=== PATIENT | female | born 1955 | race African-American/Black ===

== ENCOUNTER 2017-04-21 12:46 | Observation (INO) | payer MEDICAID, OTHER ==
[2017-04-21] VITALS (8 sets, daily range): BP systolic 112–141; BP diastolic 68–80; PULSE 77–88; RESP 16–22; TEMP 97.4–98.5; O2SAT 97–100
[~2017-04-21] VITALS: Ht 170.2 cm; Wt 60.0 kg
[~2017-04-21 12:46] MED LIST: DOXY100T PO; Z.0.NO CURRENT MEDS
--- NOTE | 2017-04-21 15:05 | PD ---
HPI Chief Complaint: Abdominal Pain Time Seen by Provider: 15:05 Travel History International Travel<30 days: No Contact w/Intl Traveler<30days: No Traveled to known affect area: No History of Present Illness HPI 61-year-old Afro-Dominican female presents the emergency department reportedly at the request of Dr. Caldera the coffee machine technician for recent diagnosis of stomach/esophageal cancer. Patient states she recently had an endoscopy for ongoing chest discomfort and abdominal pain. She states she was called by Dr. Caldera's office to come in the hospital for further evaluation and treatment for new diagnosis of MALT lymphoma. Patient currently has minimal pain but has a sickly's stomach feeling at this time. No vomiting currently. She has no diarrhea, no constipation. She is allergic to aspirin, penicillin, and Voltaren. PFSH Past Medical History Arthritis: Yes Asthma: No Autoimmune Disease: No Blood Disorders: No Anxiety: No Depression: No Heart Rhythm Problems: No Cancer: No Cardiovascular Problems: Yes High Cholesterol: No Chemotherapy: No Chest Pain: Yes Congestive Heart Failure: No COPD: No Cerebrovascular Accident: No Diabetes: No Diminished Hearing: No Endocrine: No Gastrointestinal Disorders: No GERD: No Glaucoma: No Genitourinary: No Headaches: No Hepatitis: No Hiatal Hernia: No Hypertension: No Immune Disorder: No Kidney Stones: No Musculoskeletal: Yes Neurologic: No Psychiatric: No Respiratory: No Myocardial Infarction: No Radiation Therapy: No Renal Failure: No Seizures: No Sickle Cell Disease: No Sleep Apnea: No Thyroid Disease: No Ulcer: No Menopausal: Yes Past Surgical History Abdominal Surgery: No AICD: No Cardiac Surgery: No Ear Surgery: No Endocrine Surgery: No Eye Surgery: No Genitourinary Surgery: No Gynecologic Surgery: Yes (LEFT OOPHRECTOMY) Hysterectomy: Yes (STATES ONE OVARY REMOVED ONLY) Joint Replacement: No Neurologic Surgery: No Oral Surgery: No Pacemaker: No Thoracic Surgery: No Other Surgery: Yes Social History Alcohol Use: No Tobacco Use: No Substance Use: No Allergies-Medications (Allergen,Severity, Reaction): Coded Allergies: Aspirin (Verified Allergy, Severe, NAUSEA, 04/21/17) Voltaren (Verified Allergy, Severe, VOMITING, 04/21/17) Penicillin (Verified Adverse Reaction, Severe, VOMITING, 04/21/17) Reported Meds & Prescriptions Reported Meds & Active Scripts Active Reported Levothyroxine (Levothyroxine Sodium) 25 Mcg Tab 25 Mcg PO DAILY Review of Systems General / Constitutional: No: Fever Eyes: No: Visual changes HENT: No: Headaches Cardiovascular: No: Chest Pain or Discomfort Respiratory: No: Shortness of Breath Gastrointestinal: Positive: Nausea, No: Vomiting, Diarrhea, Abdominal Pain Genitourinary: No: Dysuria Musculoskeletal: No: Pain Skin: No Rash Neurologic: No: Weakness Psychiatric: No: Depression Endocrine: No: Polydipsia Hematologic/Lymphatic: No: Easy Bruising Physical Exam Narrative GENERAL: Patient appears in no acute distress. SKIN: Warm and dry. Normal color. Normal turgor. HEAD: Atraumatic. Normocephalic. EYES: Pupils equal and round. No scleral icterus. No injection or drainage. ENT: No nasal bleeding or discharge. Mucous membranes pink and moist. Pharynx is clear. Airway is patent. NECK: Trachea midline. No JVD. CARDIOVASCULAR: Regular rate and rhythm. RESPIRATORY: No accessory muscle use. Clear to auscultation. Breath sounds equal bilaterally. GASTROINTESTINAL: Abdomen soft, non-tender, nondistended. Hepatic and splenic margins not palpable. MUSCULOSKELETAL: Extremities without clubbing, cyanosis, or edema. No obvious deformities. NEUROLOGICAL: Awake and alert. No obvious cranial nerve deficits. Motor grossly within normal limits. Five out of 5 muscle strength in the arms and legs. Normal speech. PSYCHIATRIC: Appropriate mood and affect; insight and judgment normal. Data Data Last Documented VS Vital Signs Date Time Temp Pulse Resp B/P Pulse Ox O2 Delivery O2 Flow Rate FiO2 04/21/17 15:54 81 17 123/75 99 Room Air 04/21/17 12:48 98.5 Orders Complete Blood Count With Diff (04/21/17 15:25) Comprehensive Metabolic Panel (04/21/17 15:25) Lipase (04/21/17 15:25) Prothrombin Time / Inr (Pt) (04/21/17 15:25) Act Partial Throm Time (Ptt) (04/21/17 15:25) Urinalysis - C+S If Indicated (04/21/17 15:25) Iv Access Insert/Monitor (04/21/17 15:25) Ecg Monitoring (04/21/17 15:25) Oximetry (04/21/17 15:25) Ondansetron Inj (Zofran Inj) (04/21/17 15:30) Sodium Chloride 0.9% Flush (Ns Flush) (04/21/17 15:30) Electrocardiogram (04/21/17 15:25) Chest, Single Ap (04/21/17 15:25) Labs Laboratory Tests Test 04/21/17 15:40 White Blood Count 6.1 TH/MM3 Red Blood Count 4.18 MIL/MM3 Hemoglobin 12.2 GM/DL Hematocrit 36.3 % Mean Corpuscular Volume 86.9 FL Mean Corpuscular Hemoglobin 29.1 PG Mean Corpuscular Hemoglobin 33.6 % Concent Red Cell Distribution Width 12.9 % Platelet Count 248 TH/MM3 Mean Platelet Volume 8.2 FL Neutrophils (%) (Auto) 48.9 % Lymphocytes (%) (Auto) 37.4 % Monocytes (%) (Auto) 7.0 % Eosinophils (%) (Auto) 5.8 % Basophils (%) (Auto) 0.9 % Neutrophils # (Auto) 3.0 TH/MM3 Lymphocytes # (Auto) 2.3 TH/MM3 Monocytes # (Auto) 0.4 TH/MM3 Eosinophils # (Auto) 0.3 TH/MM3 Basophils # (Auto) 0.1 TH/MM3 CBC Comment DIFF FINAL Differential Comment Prothrombin Time 10.1 SEC Prothromb Time International 0.9 RATIO Ratio Activated Partial 30.2 SEC Thromboplast Time Urine Color YELLOW Urine Turbidity CLEAR Urine pH 5.5 Urine Specific [place] 1.015 Urine Protein NEG mg/dL Urine Glucose (UA) NEG mg/dL Urine Ketones NEG mg/dL Urine Occult Blood NEG Urine Nitrite NEG Urine Bilirubin NEG Urine Urobilinogen LESS THAN 2.0 MG/DL Urine Leukocyte Esterase NEG Urine WBC 1 /hpf Urine Mucus FEW /lpf Microscopic Urinalysis Comment CULT NOT INDICATED Sodium Level 141 MEQ/L Potassium Level 3.8 MEQ/L Chloride Level 108 MEQ/L Carbon Dioxide Level 25.7 MEQ/L Anion Gap 7 MEQ/L Blood Urea Nitrogen 15 MG/DL Creatinine 0.74 MG/DL Estimat Glomerular Filtration 97 ML/MIN Rate Random Glucose 95 MG/DL Calcium Level 9.2 MG/DL Total Bilirubin 0.4 MG/DL Aspartate Amino Transf 16 U/L (AST/SGOT) Alanine Aminotransferase 22 U/L (ALT/SGPT) Alkaline Phosphatase 102 U/L Total Protein 7.2 GM/DL Albumin 3.4 GM/DL Lipase 170 U/L [facility] Medical Decision Making Medical Screen Exam Complete: Yes Emergency Medical Condition: Yes Medical Record Reviewed: Yes Differential Diagnosis Recent diagnosis of abdominal cancer. H. pylori. Abdominal pain. Narrative Course Call was placed to Dr. Caldera, regarding the patient. IV access is obtained and the patient is given 4 mg Zofran IV. EKG, chest x-ray, and labs ordered including CBC, CMP, urinalysis, and lipase. Chest x-ray is negative for acute process. EKG shows normal sinus rhythm without significant findings. CBC is unremarkable. Urinalysis is unremarkable. CMP shows no significant findings. Records are requested from the [facility]. Patient will be admitted to the hospitalist with oncology consult. Diagnosis Primary Impression: MALT lymphoma Admitting Information Admitting Physician Requests: Observation Condition: Stable Shaheed Cates Apr 21, 2017 15:05
[2017-04-21] MEDS ORDERED: SODIUM CHLORIDE 0.9% FLUSH 10 ML FLUSH IV FLUSH PRN ×2 (15:30→17:45)
[2017-04-21] MEDS ORDERED: ONDANSETRON HCL 4 MG/2 ML VIAL IVP ONE (15:30)
[2017-04-21] MEDS ORDERED: LEVO25TA4 PO (16:02)
[2017-04-21 16:13] LABS: BASOPHIL # 0.1 TH/MM3 (0-0.2); BASOPHIL % 0.9 % (0.0-2.0); EOSINOPHIL # 0.3 TH/MM3 (0-0.4); EOSINOPHIL % 5.8 % (0.0-4.0); HEMATOCRIT 36.3 % (35.0-46.0); HEMO FLAGS DIFF FINAL; LYMPH % 37.4 % (9.0-44.0); LYMPHOCYTE # 2.3 TH/MM3 (1.0-4.8); MEAN CELL VOLUME 86.9 FL (80.0-100.0); MEAN CORPUSCULAR HEMOGLOBIN 29.1 PG (27.0-34.0); MEAN CORPUSCULAR HGB CONC 33.6 % (32.0-36.0); NEUT % 48.9 % (16.0-70.0); PLATELET COUNT 248 TH/MM3 (150-450); RED BLOOD COUNT 4.18 MIL/MM3 (4.00-5.30); RED CELL DISTRIBUTION WIDTH 12.9 % (11.6-17.2); WHITE BLOOD COUNT 6.1 TH/MM3 (4.0-11.0)
[2017-04-21 16:23] LABS: BLOOD, URINE NEG (NEG); COMMENT (UR) CULT NOT INDICATED; CULTURE IF INDICATED CULT NOT INDICATED; GLUCOSE,URINE NEG (NEG); KETONE, URINE NEG (NEG); MUCUS URINE FEW /lpf (OCC); NITRITE,URINE NEG (NEG); PH, URINE 5.5 (5.0-8.5); URINE COLOR YELLOW (YELLW/STRAW)
[2017-04-21 16:28] LABS: APTT (PATIENT) 30.2 SEC (24.3-30.1); INTERNATIONAL NORMALIZED RATIO 0.9 RATIO; PROTHROMBIN TIME - PATIENT 10.1 SEC (9.8-11.6)
--- NOTE | 2017-04-21 16:33 | RADRPT ---
EXAM DATE/TIME: 04/21/2017 15:58 [facility] COMPARISON: No previous studies available for comparison. INDICATIONS : Upper abdominal/chest pain. MEDICAL HISTORY : None. SURGICAL HISTORY : None. ENCOUNTER: Initial ACUITY: 2 weeks PAIN SCORE: 6/10 LOCATION: chest FINDINGS: The lungs are clear without infiltrate, nodule, or mass. There is no appreciable pleural effusion fo r technique. Heart and mediastinum are unremarkable. CONCLUSION: No acute cardiopulmonary disease. Adelina Flores MD on April 21, 2017 at 16:31 Board Certified Radiologist. This report was verified electronically.
[2017-04-21 16:41] LABS: ANION GAP 7 MEQ/L (5-15); AST (GOT) 16 U/L (15-37); BICARBONATE 25.7 MEQ/L (21.0-32.0); BLOOD UREA NITROGEN 15 MG/DL (7-18); CHLORIDE 108 MEQ/L (98-107); GLOMERULAR FILTRATION RATE 97 ML/MIN (>89); POTASSIUM 3.8 MEQ/L (3.5-5.1); SODIUM (NA) 141 MEQ/L (136-145)
[2017-04-21 16:44] LABS: ALKALINE PHOSPHATASE 102 U/L (45-117); ALT (GPT) 22 U/L (10-53); TOTAL BILIRUBIN ADULT 0.4 MG/DL (0.2-1.0)
--- NOTE | 2017-04-21 18:40 | HHI.HP ---
HPI Service [facility] Primary Care Physician No Primary Care Physician Admission Diagnosis MALT Lymphoma Diagnoses: Chief Complaint: Abdominal Pain Travel History International Travel<30 Days: No Contact w/Intl Traveler <30 Da: No Traveled to Known Affected Are: No History of Present Illness Written by Bruno Coulter, acting as scribe for Dr. Araujo on 04/21/17 at 18: 24. Patient is a 61-year-old AA female with primary medical history of hypothyroidism, rheumatoid arthritis who came into the hospital with complaints of abdominal pain. Patient stated that she was diagnosed yesterday with MALT lymphoma, stomach. She had an EGD with Botox and biopsy done by Dr. Caldera and was told to come to the hospital for further evaluation and treatment of MALT lymphoma. Two weeks ago she was at [facility] diagnosed with H. Pylori. Came in today for increasing abdominal pain, reports abdominal pain is intermittent and has increased in frequency and severity, radiating to the mid sternum area, relieved with pain medications. Patient reports constipation, nausea but no vomiting. She also reports night sweats. States that she has been feeling some stomach pain on and off and has been having stomach problems thinking it was only gas for the past several months. Currently she denies fevers, shortness of breath, chest pain, palpitations, dizziness, headache, diarrhea, dysuria. Review of Systems Except as stated in HPI: all other systems reviewed are Neg Past Family Social History Past Medical History Hypothyroidism Rheumatoid arthritis Past Surgical History Partial thyroidectomy Spinal tap Left oophorectomy Reported Medications Reported Meds & Active Scripts Active Reported Levothyroxine (Levothyroxine Sodium) 25 Mcg Tab 25 Mcg PO DAILY Allergies: Coded Allergies: Aspirin (Verified Allergy, Severe, NAUSEA, 04/21/17) Voltaren (Verified Allergy, Severe, VOMITING, 04/21/17) Penicillin (Verified Adverse Reaction, Severe, VOMITING, 04/21/17) Active Ordered Medications Current Medications Medications (Trade) Dose Ordered Sig/Renetta Route Start Time Stop Time Status Last Admin (NS Flush) 2 ml UNSCH PRN IV FLUSH 04/21/17 15:30 04/21/17 16:07 (NS Flush) 2 ml UNSCH PRN IV FLUSH 04/21/17 17:45 (NS Flush) 2 ml BID IV FLUSH 04/21/17 21:00 Family History Grandmother of colon cancer, one brother had leukemia, sister had from heart attack, another brother has stomach and colon problem is still alive Social History Rare alcohol use not in the last 3 months Former smoker, quit 10 years ago 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 SKIN: No rashes, ecchymoses or lesions. Warm and dry. HEAD: Normocephalic. No temporal or scalp tenderness. EYES: Pupils equal round and reactive. Extraocular motions intact. No scleral icterus. No injection or drainage. ENT: Nose without bleeding. Throat without erythema. Uvula midline. Dentures present. Airway patent. NECK: Trachea midline. No JVD or lymphadenopathy. Supple, nontender, no meningeal signs. CARDIOVASCULAR: Regular rate and rhythm without murmurs, gallops, or rubs. RESPIRATORY: Clear to auscultation. Breath sounds equal bilaterally. No wheezes , rales, or rhonchi. GASTROINTESTINAL: Abdomen soft, non-tender, slightly distended. BS Active x 4 MUSCULOSKELETAL: Extremities without clubbing, cyanosis, or edema. NEUROLOGICAL: Awake and alert. Cranial nerves II through XII intact. Motor and sensory grossly within normal limits. Normal speech. Laboratory Laboratory Tests Test 04/21/17 15:40 White Blood Count 6.1 Red Blood Count 4.18 Hemoglobin 12.2 Hematocrit 36.3 Mean Corpuscular Volume 86.9 Mean Corpuscular Hemoglobin 29.1 Mean Corpuscular Hemoglobin 33.6 Concent Red Cell Distribution Width 12.9 Platelet Count 248 Mean Platelet Volume 8.2 Neutrophils (%) (Auto) 48.9 Lymphocytes (%) (Auto) 37.4 Monocytes (%) (Auto) 7.0 Eosinophils (%) (Auto) 5.8 Basophils (%) (Auto) 0.9 Neutrophils # (Auto) 3.0 Lymphocytes # (Auto) 2.3 Monocytes # (Auto) 0.4 Eosinophils # (Auto) 0.3 Basophils # (Auto) 0.1 CBC Comment DIFF FINAL Differential Comment Prothrombin Time 10.1 Prothromb Time International 0.9 Ratio Activated Partial 30.2 Thromboplast Time Urine Color YELLOW Urine Turbidity CLEAR Urine pH 5.5 Urine Specific [place] 1.015 Urine Protein NEG Urine Glucose (UA) NEG Urine Ketones NEG Urine Occult Blood NEG Urine Nitrite NEG Urine Bilirubin NEG Urine Urobilinogen LESS THAN 2.0 Urine Leukocyte Esterase NEG Urine WBC 1 Urine Mucus FEW Microscopic Urinalysis Comment CULT NOT INDICATED Sodium Level 141 Potassium Level 3.8 Chloride Level 108 Carbon Dioxide Level 25.7 Anion Gap 7 Blood Urea Nitrogen 15 Creatinine 0.74 Estimat Glomerular Filtration 97 Rate Random Glucose 95 Calcium Level 9.2 Total Bilirubin 0.4 Aspartate Amino Transf 16 (AST/SGOT) Alanine Aminotransferase 22 (ALT/SGPT) Alkaline Phosphatase 102 Total Protein 7.2 Albumin 3.4 Lipase 170 Result Diagram: 04/21/17 1540 04/21/17 1540 Assessment and Plan Problem List: (1) MALT lymphoma ICD Code: C88.4 Status: Acute (2) Hypothyroidism ICD Code: E03.9 Status: Chronic Assessment and Plan Patient is a 61-year-old AA female with primary medical history of hypothyroidism, rheumatoid arthritis who came into the hospital with complaints of abdominal pain. Patient stated that she was diagnosed yesterday with MALT lymphoma, stomach. MALT lymphoma, gastric Abdominal pain, associated with nausea - Dx with H. Pylori 2 weeks ago. Had EGD with botox and biopsy done by Dr. Caldera. - Medical Oncology consult for further recommendations - GI consult for follow up. She was seen by Dr. Caldera previously. - Zofran PRN for nausea - Protonix Hypothyroidism - Continue with home medication levothyroxine 25 g daily Labs reviewed UA negative, slightly elevated eosinophil 5.8, slightly elevated chloride 108, APTT 30.2, otherwise the rest of the lab readings are within normal DVT prop SCD Code Status Full code Discussed Condition With Patient, nursing, ED Attending Attending Statement This note was transcribed by janet Coulter. I, Dr. Tejas Araujo personally performed the history, physical exam, and medical decision making; and confirmed the accuracy of the information in the transcribed note. Authenticated by Dr. Tejas Araujo on 04/21/17 at 19:02. Bruno Parish Apr 21, 2017 18:40 Tejas Araujo MD Apr 21, 2017 19:03
[2017-04-21] MEDS ORDERED: METR500T10 PO (19:09)
[2017-04-21] MEDS ORDERED: TETR250C PO (19:09)
[2017-04-21] MEDS ORDERED: PANT40TA3 PO (19:09)
[2017-04-21] MEDS ORDERED: CYCL1TAB29 PO (19:12)
[2017-04-21] MEDS ORDERED: GABA300C5 PO (19:49)
[2017-04-21] MEDS ORDERED: PANTOPRAZOLE SODIUM 40 MG VIAL IV PUSH SCH (21:00)
[2017-04-21] MEDS: SODIUM CHLORIDE 0.9% FLUSH 10 ML FLUSH IV FLUSH SCH (21:14)
[2017-04-22 04:24] VITALS: BP 120/70; PULSE 88; RESP 18; TEMP 98; O2SAT 96
[2017-04-22 08:48] VITALS: BP 128/69; PULSE 71; TEMP 96.1; O2SAT 99
[2017-04-22] MEDS: SODIUM CHLORIDE 0.9% FLUSH 10 ML FLUSH IV FLUSH SCH (09:00)
--- NOTE | 2017-04-22 10:35 | HHI.PR ---
Subjective Remarks Follow up abdominal pain, lymphoma. Patient continues to report abdominal pain, worse in right upper quadrant. No nausea/vomiting. Objective Vitals Vital Signs Date Time Temp Pulse Resp B/P Pulse Ox O2 Delivery O2 Flow Rate FiO2 04/22/17 08:48 96.1 71 128/69 99 04/22/17 04:24 98.0 88 18 120/70 96 04/21/17 23:17 97.8 78 18 117/68 100 04/21/17 20:01 97.8 77 18 128/77 97 04/21/17 18:46 97.4 84 16 141/72 100 04/21/17 18:15 112/70 98 04/21/17 17:34 79 16 112/70 99 Room Air 04/21/17 17:15 83 123/75 04/21/17 15:54 81 17 123/75 99 Room Air 04/21/17 12:48 98.5 88 22 136/80 100 Room Air Result Diagram: 04/21/17 1540 04/21/17 1540 Imaging Last Impressions Chest X-Ray 04/21/17 1525 Signed Impressions: Service Date/Time: Friday, April 21, 2017 15:58 - CONCLUSION: No acute cardiopulmonary disease. Adelina Flores MD Objective Remarks General: No acute distress. Heart: Regular rate and rhythm. No murmur. Lungs: Clear to auscultation bilaterally. No wheezes, rales, or rhonchi. Breathing is nonlabored. Abdomen: Soft, mild tenderness to palpation in the right upper quadrant, nondistended. Extremities: No lower extremity edema. Psych: Alert and oriented. Procedures None Urinary Catheter: No Vascular Central Line Catheter: No A/P Problem List: (1) MALT lymphoma ICD Code: C88.4 Status: Acute (2) Hypothyroidism ICD Code: E03.9 Status: Chronic (3) Abdominal pain ICD Code: R10.9 Status: Acute Assessment and Plan 1. MALT lymphoma, gastric: GI and oncology consultations are pending. Continue pain control, antiemetics. Continue Protonix. 2. Hypothyroidism: Continue Synthroid. 3. DVT prophylaxis: SCDs, Lovenox. Tejas Araujo MD Apr 22, 2017 10:35
[2017-04-22] MEDS ORDERED: ONDANSETRON HCL 4 MG/2 ML VIAL IV PUSH PRN (10:45)
[2017-04-22] MEDS ORDERED: ACETAMINOPHEN/HYDROcodone 325 MG/7.5 MG TAB PO PRN (10:45)
[2017-04-22] MEDS ORDERED: ENOXAPARIN SODIUM 40 MG/0.4 ML SYRINGE SQ SCH (10:45)
[2017-04-22] MEDS ORDERED: ACETAMINOPHEN/HYDROcodone 325 MG/5 MG TAB PO PRN (10:45)
--- NOTE | 2017-04-22 11:38 | PD.CONS ---
HPI History of Present Illness This is a 61 year old AA female with primary medical history of hypothyroidism, rheumatoid arthritis who came into the hospital with complaints of abdominal pain. Patient has been having epigastric pain and chest pain for 2 yrs, and always was told it was GERD, so she would take PPI, that normally would ease the symptoms but doesn't totally give her relief. She lost some wt, but has gained back recently. Denies nausea, vomiting, hematemesis, melena or hematochezia. She has bloating, and constipation. She was evaluated at 2 weeks ago and under went EGD/colonoscopy on ( 04/06/17) with Dr. Caldera---> duodenitis in duodenal bulb, multiple superficial ulcerations and severe gastritis in the antrum.. similar findings in the lesser curvature, with clean based ulcer was seen. suspicious for malignancy, esophagitis in the distal esophagus, a very tight EG junction with dilated esophagus suggesting achalasia. Botox was injected, prior to that dilatation suing Savary dilator 17 , small hiatal hernia Colonoscopy showed diverticulosis, sigmoid and descending colon, internal and external hemorrhoids, rectal polyps and 2 diminutive colon cold bx with compete removal was performed BX revealed H-pylori , gastric body bx revealed moderate to severe chronic active gastritis with atypical lymphoid proliferation suspicious for MALT lymphoma. CD 20: Dominant papulation of B cells with focal involvement of glandular epithelium, CD5: Positive in [place]-apache T-cells, Bc12: positive in the [place]-apache T-cells, CD 10: negative, CD 23: Negative, hyperplastic polyps in the rectum. Ct on 04/07/17 Punctate nonobstructing stone in the upper pole the right kidney, mild to moderate circumferential thickening of the gastroesophageal junction. She was abx for H-pylori, started first dose yesterday. She is still with epigastric pain and asking about pain meds. She was advised by dr. Caldera to come here for further eval. Oncology is consulted. (Jarad Aguilar) PFSH Past Medical History Hypothyroidism Rheumatoid arthritis MALT lymphoma GERD Past Surgical History Partial thyroidectomy Spinal tap Left oophorectomy EGD/Botox. colonoscopy (Jarad Aguilar) Coded Allergies: Aspirin (Verified Allergy, Severe, NAUSEA, 04/21/17) Voltaren (Verified Allergy, Severe, VOMITING, 04/21/17) Penicillin (Verified Adverse Reaction, Severe, VOMITING, 04/21/17) Medications Current Medications Medications (Trade) Dose Ordered Sig/Renetta Route Start Time Stop Time Status Last Admin (NS Flush) 2 ml UNSCH PRN IV FLUSH 04/21/17 15:30 04/21/17 16:07 (NS Flush) 2 ml UNSCH PRN IV FLUSH 04/21/17 17:45 (NS Flush) 2 ml BID IV FLUSH 04/21/17 21:00 04/22/17 09:00 (Protonix Inj) 40 mg Q24H IV PUSH 04/21/17 21:00 04/21/17 21:14 (Lovenox Inj) 40 mg Q24H SQ 04/22/17 10:45 ([place] 5-325 Mg) 1 tab Q4H PRN PO 04/22/17 10:45 ([place] 7.5-325 Mg) 1 tab Q4H PRN PO 04/22/17 10:45 (Zofran Inj) 4 mg Q8HR PRN IV PUSH 04/22/17 10:45 Family History Grandmother of colon cancer, one brother had leukemia, sister had from heart attack, another brother has stomach and colon problem is still alive Social History Rare alcohol use not in the last 3 months Former smoker, quit 10 years ago History of illicit drug use but not IV drugs in her 30s, she has been clean for 21 years (Jarad Aguilar) Review of Systems Constitutional: COMPLAINS OF: Weight gain, Change in appetite Endocrine: DENIES: Polyuria Eyes: DENIES: Double Vision Ears, nose, mouth, throat: DENIES: Hoarseness Respiratory: DENIES: Shortness of breath Cardiovascular: DENIES: Lower Extremity Edema Gastrointestinal: COMPLAINS OF: Abdominal pain, Constipation, Swelling of Abdomen, Heartburn, DENIES: Black stools, Bloody stools, Diarrhea, Nausea, Vomiting, Difficulty Swallowing, Anorexia, Odynophagia, Hematemesis Genitourinary: DENIES: Hematuria Musculoskeletal: DENIES: Neck pain Integumentary: DENIES: Jaundice Hematologic/lymphatic: DENIES: Bruising Immunologic/allergic: DENIES: Eczema Neurologic: DENIES: Abnormal gait Psychiatric: DENIES: Anxiety (Jarad Aguilar) GI Exam Vitals I&O Vital Signs Date Time Temp Pulse Resp B/P Pulse Ox O2 Delivery O2 Flow Rate FiO2 04/22/17 08:48 96.1 71 128/69 99 04/22/17 04:24 98.0 88 18 120/70 96 04/21/17 23:17 97.8 78 18 117/68 100 04/21/17 20:01 97.8 77 18 128/77 97 04/21/17 18:46 97.4 84 16 141/72 100 04/21/17 18:15 112/70 98 04/21/17 17:34 79 16 112/70 99 Room Air 04/21/17 17:15 83 123/75 04/21/17 15:54 81 17 123/75 99 Room Air 04/21/17 12:48 98.5 88 22 136/80 100 Room Air Imaging Last Impressions Chest X-Ray 04/21/17 1525 Signed Impressions: Service Date/Time: Friday, April 21, 2017 15:58 - CONCLUSION: No acute cardiopulmonary disease. Adelina Flores MD Ct on 04/07/17 Punctate nonobstructing stone in the upper pole the right kidney, mild to moderate circumferential thickening of the gastroesophageal junction Laboratory Test 04/21/17 15:40 White Blood Count 6.1 TH/MM3 Red Blood Count 4.18 MIL/MM3 Hemoglobin 12.2 GM/DL Hematocrit 36.3 % Mean Corpuscular Volume 86.9 FL Mean Corpuscular Hemoglobin 29.1 PG Mean Corpuscular Hemoglobin 33.6 % Concent Red Cell Distribution Width 12.9 % Platelet Count 248 TH/MM3 Mean Platelet Volume 8.2 FL Neutrophils (%) (Auto) 48.9 % Lymphocytes (%) (Auto) 37.4 % Monocytes (%) (Auto) 7.0 % Eosinophils (%) (Auto) 5.8 % Basophils (%) (Auto) 0.9 % Neutrophils # (Auto) 3.0 TH/MM3 Lymphocytes # (Auto) 2.3 TH/MM3 Monocytes # (Auto) 0.4 TH/MM3 Eosinophils # (Auto) 0.3 TH/MM3 Basophils # (Auto) 0.1 TH/MM3 CBC Comment DIFF FINAL Differential Comment Prothrombin Time 10.1 SEC Prothromb Time International 0.9 RATIO Ratio Activated Partial 30.2 SEC Thromboplast Time Urine Color YELLOW Urine Turbidity CLEAR Urine pH 5.5 Urine Specific Allen 1.015 Urine Protein NEG mg/dL Urine Glucose (UA) NEG mg/dL Urine Ketones NEG mg/dL Urine Occult Blood NEG Urine Nitrite NEG Urine Bilirubin NEG Urine Urobilinogen LESS THAN 2.0 MG/DL Urine Leukocyte Esterase NEG Urine WBC 1 /hpf Urine Mucus FEW /lpf Microscopic Urinalysis Comment CULT NOT INDICATED Sodium Level 141 MEQ/L Potassium Level 3.8 MEQ/L Chloride Level 108 MEQ/L Carbon Dioxide Level 25.7 MEQ/L Anion Gap 7 MEQ/L Blood Urea Nitrogen 15 MG/DL Creatinine 0.74 MG/DL Estimat Glomerular Filtration 97 ML/MIN Rate Random Glucose 95 MG/DL Calcium Level 9.2 MG/DL Total Bilirubin 0.4 MG/DL Aspartate Amino Transf 16 U/L (AST/SGOT) Alanine Aminotransferase 22 U/L (ALT/SGPT) Alkaline Phosphatase 102 U/L Total Protein 7.2 GM/DL Albumin 3.4 GM/DL Lipase 170 U/L Physical Examination HEENT: normocephalic; atraumatic; no jaundice. NECK: Neck is supple, no JVD, no lymphadenopathy. CHEST: Chest is clear to auscultation and percussion. CARDIAC: Regular rate and rhythm with no murmur gallop or rubs. ABDOMEN: Soft, nondistended, epigastric pain; no hepatosplenomegaly; bowel sounds are present in all four quadrants. EXTREMITIES: No clubbing, cyanosis, or edema. SKIN: Normal; no rash; no jaundice. [employer]: No focal deficits; alert and oriented times three. (Jarad AguilarP) Assessment and Plan Plan - New diagnosis of MALT lymphoma- Patient has been having epigastric pain and chest pain for 2 yrs, and always was told it was GERD, so she would take PPI, that normally would ease the symptoms but doesn't totally give her relief. She lost some wt, but has gained back recently. Denies nausea, vomiting, hematemesis , melena or hematochezia. She has bloating, and constipation. She was evaluated at 2 weeks ago and under went EGD/colonoscopy on ( 04/06/17) with Dr. Caldera-- -> duodenitis in duodenal bulb, multiple superficial ulcerations and severe gastritis in the antrum.. similar findings in the lesser curvature, with clean based ulcer was seen. suspicious for malignancy, esophagitis in the distal esophagus, a very tight EG junction with dilated esophagus suggesting achalasia. Botox was injected, prior to that dilatation suing Savary dilator 17 , small hiatal hernia Colonoscopy showed diverticulosis, sigmoid and descending colon, internal and external hemorrhoids, rectal polyps and 2 diminutive colon cold bx with compete removal was performed BX revealed H-pylori , gastric body bx revealed moderate to severe chronic active gastritis with atypical lymphoid proliferation suspicious for MALT lymphoma. CD 20: Dominant papulation of B cells with focal involvement of glandular epithelium, CD5: Positive in [place] T-cells, Bc12: positive in the [place]apache T-cells, CD 10: negative, CD 23: Negative, hyperplastic polyps in the rectum. Ct on 04/07/17 Punctate nonobstructing stone in the upper pole the right kidney, mild to moderate circumferential thickening of the gastroesophageal junction. She was abx for H-pylori, started first dose yesterday. She is still with epigastric pain and asking about pain meds. She was advised by dr. Caldera to come here for further eval. Oncology is consulted. - Dysphagia- S/P EGD/dill/botox with improvement - H-pyori- will order tetracycline, Flagyl, ppi - Hypothyroidism per attending Plan: - MUNA - Await oncology eval - Tetracycline 500 mg Q 6 hrs - Flagyl 500 mg Q 8 hrs. - cont. PPI - Pain meds - Case was discussed with Dr. Luna who thinks this is caused by H-pylori, and seems to be present in 2003 on bx He strongly believes once H-pylori eradicated, this would be cured and he recommends f/u bx after eradication of H-pylori - ok to go home and continue tx for H-pylori which she started yesterday, then f /u with GI in 2 weeks - EGD in 2 months with bx for f/u on H-pylori - Patient seen and examined by Dr. Pelletier and myself and this note is written on his behalf (Jarad Aguilar) Physician Comments Patient seen and examined Agree with above Continue with current supportive care Monitor labs We will proceed with H. pylori eradication Patient will need to follow-up with GI in 2 weeks Most likely she will need repeat endoscopy Oncology evaluation appreciated Okay for discharge from a GI standpoint (Og Pelletier MD) Jarad Aguilar Apr 22, 2017 11:38 Og Pelletier MD Apr 22, 2017 17:20
[2017-04-22 11:42] VITALS: BP 129/74; PULSE 80; TEMP 98.4; O2SAT 98
[2017-04-22] MEDS ORDERED: TETRACYCLINE HCL 500 MG CAP PO SCH (14:00)
[2017-04-22] MEDS ORDERED: TETRACYCLINE HCL 250 MG CAP PO SCH (14:00)
[2017-04-22] MEDS ORDERED: metroNIDAZOLE 500 MG TAB PO SCH (14:00)
[2017-04-22] MEDS ORDERED: HYDR-3516 PO (14:57)
--- NOTE | 2017-04-22 14:57 | HHI.DCPOC ---
Discharge Care Plan Diagnosis: (1) Hypothyroidism (2) MALT lymphoma (3) Abdominal pain (4) H. pylori infection Goals to Promote Your Health * To prevent worsening of your condition and complications * To maintain your health at the optimal level Directions to Meet Your Goals Take your medications as prescribed Follow your dietary instruction Follow activity as directed Keep your appointments as scheduled Take your immunizations and boosters as scheduled If your symptoms worsen call your PCP, if no PCP go to Urgent Care Center or Emergency Room Smoking is Dangerous to Your Health. Avoid second hand smoke Call the 24-hour hour crisis hotline for domestic abuse at Tejas Araujo MD Apr 22, 2017 14:57
[2017-04-22 15:20] VITALS: BP 128/63; PULSE 89; TEMP 85.5; O2SAT 98
--- NOTE | 2017-04-22 16:30 | MB ---
cc: IZAIAH AGEE DATE OF CONSULTATION: 04/22/2017 REASON FOR CONSULTATION: Gastric MALT lymphoma. PATIENT PROFILE: The patient is a 61-year-old black female. She has been twice. She has one son. She was born in [place]. She stopped smoking 10 years ago and had smoked one to two packs of cigarettes per day for 30 years. She has not had any alcohol in a least 4 months, and prior to this alcohol intake was very modest. HISTORY OF PRESENT ILLNESS: I believe that the current problem dates back to January 23, 2004 when she had an upper endoscopy. She had a biopsy of the gastric antrum and was found to have a lymphoid infiltrate. A Kristi stain revealed focal clusters of organisms consistent with Helicobacter. The appearance of the infiltrate would be consistent with an extranodal marginal zone B-cell MALT lymphoma. Over a number of months, she has had upper abdominal discomfort occasionally pain in the lower chest. Approximately two weeks ago she went to [facility] due to the pain. She was seen by Dr. Caldera, who is a manager cardiac. I have spoken with the nurse practitioner, Curtis Abraham. The patient had a CT scan of the abdomen and pelvis at [facility] and according to the nurse practitioner this was normal. She underwent an upper endoscopy performed by Dr. Caldera as well as a colonoscopy on 04/06/2017. She was found to have duodenitis in the duodenal bulb. There are multiple superficial ulcerations and severe gastritis in the antrum. There was also a clean based ulcer seen which is suspicious for malignancy in the lesser curvature. The EG junction was dilated. Botox was injected. The biopsy revealed Helicobacter pylori. There was moderate to severe chronic active gastritis. There was an atypical lymphoid proliferation suspicious for a MALT lymphoma. She was begun on treatment only one or two days ago. She came to the hospital because of upper abdominal pain which has occurred again and is intermittent. There is no bleeding. She has not had any peripheral adenopathy. There has been no fever, night sweats or chills. PAST SURGICAL HISTORY: Removal of ovary approximately 35 years ago, which was benign. PAST MEDICAL HISTORY: Overactive thyroid. MEDICATIONS PRIOR TO ADMISSION: 1. Flexeril. 2. Neurontin. 3. Levothyroxine. 4. Recently started on antibiotics, which she has taken for only one to two days. 5. I believe, Flagyl. 6. Tetracycline. 7. Protonix. ALLERGIES: PENICILLIN CAUSES HER STOMACH TO BE UPSET. FAMILY HISTORY: Family history is noncontributory. REVIEW OF SYSTEMS: No change in vision or hearing. Recent discomfort in the lower chest area which was evaluated at [facility]. Upper abdominal pain. In the past, she has had joint pain and this has been a very minimal problem. She states that she was diagnosed many years ago with rheumatoid arthritis and saw Dr. Wong. No dysuria, frequency, hematuria. No melena or hematochezia. No skin problems. No psychiatric problems. PHYSICAL EXAMINATION: GENERAL: The physical exam reveals a well-appearing female. VITAL SIGNS: Blood pressure 120/70, respiratory rate 18, pulse 80 afebrile, 02 saturation 98%. HEAD, EYES, EARS, NOSE, THROAT: Head is normocephalic. The sclerae and conjunctivae are normal. Oropharynx unremarkable. LYMPHATIC: No cervical, supraclavicular, axillary or inguinal adenopathy. BREASTS: Without masses. ABDOMEN: Without hepatosplenomegaly or masses. EXTREMITIES: Without edema. MUSCULOSKELETAL: No bone pain. NEUROLOGIC: No weakness. ASSESSMENT: The patient is a 61-year-old female who has gastritis and an ulcer. The biopsy is suggestive of a MALT lymphoma. According to the nurse practitioner, she had a CT scan of the abdomen and pelvis, and was found to have no intraabdominal adenopathy. Under these circumstances, it appears that she has early stage Helicobacter pylori-positive lymphoma. The initial treatment is eradication of the H. Pylori. RECOMMENDATIONS: 1. The patient should receive treatment to eradicate the H. Pylori. 2. Histologic complete response is achieved in-between 50% to 83% of patients treated in this manner. 3. The median time to eradication to CR is about 15 months. Relapse rates are about 20%. 4. She will require follow up with GI, both in terms of demonstrating eradication of H. Pylori and the need for periodic upper endoscopy with biopsies. 5. If the treatment is unsuccessful, then radiation therapy can be used with complete response rates of almost 100% but the initial treatment remains eradication of the H. Pylori. This was discussed with the nurse practitioner who will talk with the manager cardiac information analyst. I spoke with the primary care physician, Dr. Araujo, as well. Hopefully she will be able to go home on appropriate antibiotic therapy and follow up with gastroenterology in terms of eradication of the H. pylori and repeat upper endoscopies. MD RUBEN Crowley/CORI /2:55 PM /4:10 PM CARIN
--- NOTE | 2017-04-22 19:20 | EKG ---
Date Performed: 04/21/2017 Time Performed: 16:15:58 PTAGE: 61 years EKG: Sinus rhythm NONSPECIFIC T-WAVE CHANGE ANTERIORLY ABNORMAL ECG Compared to PREVIOUS TRACING , the T-wave changes have improved. PREVIOUS TRACIN12/06/2005 07.09 DOCTOR: Bakari Howe Interpretating Date/Time 04/22/2017 19:18:28
== END 2017-04-22 18:32 | disposition home or self-care (01) ==
LOC: NEPE 12:46 → NEDA 17:05 → NEPHCDU 18:46
PROVIDERS: ADMIT Family Medicine; ATTEND Family Medicine
DX: C88.4 Extranodal marginal zone B-cell lymphoma of mucosa-associated lymphoid tissue [MALT-lymphoma] (principal); B96.81 Helicobacter pylori [H. pylori] as the cause of diseases classified elsewhere; E03.9 Hypothyroidism, unspecified; M06.9 Rheumatoid arthritis, unspecified; Z87.891 Personal history of nicotine dependence
CPT/HCPCS: 71010; 80053; 81001; 83690; 85025; 85610; 85730; 93005; 96374; 99285; C9113; G0378; J1650; J2405

== ENCOUNTER → 2017-05-18 | Outpatient (CLI) | payer OTHER ==
[~2017-05-18] MED LIST changes: +CYCL1TAB29 PO; -DOXY100T PO; +GABA300C5 PO; +HYDR-3516 PO; +IOHEXOL 350 MG/ML 10 ML VIAL (for RAD DIAG) IVCONTRAST ONE; +LEVO25TA4 PO; +PANT40TA3 PO; +TETR250C PO; +VITA100064 PO; -Z.0.NO CURRENT MEDS
--- NOTE | 2017-05-18 14:38 | RADRPT ---
EXAM DATE/TIME: 05/18/2017 13:45 [facility] COMPARISON: No previous studies available for comparison. INDICATIONS : Lymphoma; re-staging evaluation. IV CONTRAST: 96 cc Omnipaque 350 (iohexol) IV ; Cumulative dose for multiple exams. RADIATION DOSE: 5.13 CTDIvol (mGy) ; Combined studies - Thorax/Abdomen/Pelvis MEDICAL HISTORY : Lymphoma. SURGICAL HISTORY : Left oophorectomy. ENCOUNTER: Initial ACUITY: 1 day PAIN SCALE: 0/10 LOCATION: chest TECHNIQUE: Volumetric scanning of the chest was performed. Using automated exposure control and adjustment of t he mA and/or kV according to patient size, radiation dose was kept as low as reasonably achievable to obtain optimal diagnostic quality images. DICOM format image data is available electronically for review and comparison. Follow-up recommendations for detected pulmonary nodules are based at a minimum on nodule size and pa tient risk factors according to Fleischner Society Guidelines. FINDINGS: The lungs are clear without infiltrate, nodule, or mass except for slight linear scarring right lung base and nodular appearing scar involving the left major fissure. There is no pleural effusion. Ther e is oblong shaped density in the anterior mediastinum along the aortic arch measures 4.5 x 1.6 cm in size not particularly masslike may be matted lymph nodes at this site most likely benign, but indete rminate. 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 CONCLUSION: Indeterminate soft tissue density in the anterior mediastinum may be scarred down mat rhiannon lymph nodes. Adelina Flores MD on May 18, 2017 at 14:19 Board Certified Radiologist. This report was verified electronically.
--- NOTE | 2017-05-18 14:41 | RADRPT ---
EXAM DATE/TIME: 05/18/2017 13:48 [facility] COMPARISON: No previous studies available for comparison. INDICATIONS : Lymphoma; re-staging evaluation. IV CONTRAST: 96 cc Omnipaque 350 (iohexol) IV ; Cumulative dose for multiple exams. ORAL CONTRAST: Prescribed oral contrast ingested. RADIATION DOSE: 5.13 CTDIvol (mGy) ; Combined studies - Thorax/Abdomen/Pelvis MEDICAL HISTORY : Lymphoma. SURGICAL HISTORY : Left oophorectomy. ENCOUNTER: Initial ACUITY: 1 day PAIN SCALE: 0/10 LOCATION: upper quadrant TECHNIQUE: Volumetric scanning of the abdomen and pelvis was performed. Using automated exposure control and ad justment of the mA and/or kV according to patient size, radiation dose was kept as low as reasonably achievable to obtain optimal diagnostic quality images. DICOM format image data is available electro nically for review and comparison. FINDINGS: CT Abdomen: The spleen, pancreas, right kidney, adrenals are unremarkable. Incidental note is made of a couple of tiny subcentimeter cysts in the left kidney. There is a tiny subcentimeter cyst in the l eft hepatic lobe found incidentally. There is no evidence for any appreciable pathological adenopathy , free fluid, or bowel obstruction. L1 transverse processes appear not fused on a congenital basis b ilaterally. Chronic vascular calcifications are present involving the aorta, iliac arteries without a ny significant stenosis or aneurysmal dilatations for technique. CT pelvis: There is no evidence for mass, abscess formation, or any significant adenopathy within the pelvis. CONCLUSION: Chronic atherosclerotic calcifications and no evidence for metastatic disease. Adelina Flores MD on May 18, 2017 at 14:37 Board Certified Radiologist. This report was verified electronically.
== END ==
LOC: HRAD 11:47
PROVIDERS: ATTEND Internal Medicine
DX: C88.4 Extranodal marginal zone B-cell lymphoma of mucosa-associated lymphoid tissue [MALT-lymphoma] (principal)
CPT/HCPCS: 71260; 74177; Q9967

== ENCOUNTER → 2017-06-09 | Outpatient (CLI) | payer OTHER ==
[~2017-06-09] MED LIST changes: -IOHEXOL 350 MG/ML 10 ML VIAL (for RAD DIAG) IVCONTRAST ONE
[2017-06-09 09:50] LABS: HDL CHOLESTEROL 58.3 MG/DL (40.0-60.0)
== END ==
LOC: CLAB 08:53
PROVIDERS: ATTEND Family Medicine
DX: E03.9 Hypothyroidism, unspecified (principal); A04.8 Other specified bacterial intestinal infections; R10.84 Generalized abdominal pain; C88.4 Extranodal marginal zone B-cell lymphoma of mucosa-associated lymphoid tissue [MALT-lymphoma]
CPT/HCPCS: 36415; 80061; 84443

== ENCOUNTER → 2017-07-05 | Outpatient (CLI) | payer OTHER ==
[2017-07-05 16:14] LABS: AUTOMATED NEUTROPHIL # 3.1 TH/MM3 (1.8-7.7); BASOPHIL % 0.4 % (0.0-2.0); EOSINOPHIL # 0.2 TH/MM3 (0-0.4); EOSINOPHIL % 3.2 % (0.0-4.0); HEMATOCRIT 36.6 % (35.0-46.0); HEMO FLAGS DIFF FINAL; LYMPH % 38.3 % (9.0-44.0); LYMPHOCYTE # 2.4 TH/MM3 (1.0-4.8); MEAN CELL VOLUME 86.7 FL (80.0-100.0); MEAN CORPUSCULAR HEMOGLOBIN 28.2 PG (27.0-34.0); MEAN CORPUSCULAR HGB CONC 32.5 % (32.0-36.0); MONO % 9.2 % (0.0-8.0); NEUT % 48.9 % (16.0-70.0); PLATELET COUNT 233 TH/MM3 (150-450); RED BLOOD COUNT 4.23 MIL/MM3 (4.00-5.30); RED CELL DISTRIBUTION WIDTH 13.3 % (11.6-17.2); WHITE BLOOD COUNT 6.4 TH/MM3 (4.0-11.0)
[2017-07-05 17:12] LABS: FERRITIN 77 NG/ML (8-252); TRANSFERRIN IRON PROFILE 262 MG/DL (200-360)
== END ==
LOC: CLAB 15:23
PROVIDERS: ATTEND Internal Medicine Gastroenterology
DX: K21.9 Gastro-esophageal reflux disease without esophagitis (principal); K29.70 Gastritis, unspecified, without bleeding
CPT/HCPCS: 36415; 82306; 82607; 82728; 82746; 83540; 83550; 85025

== ENCOUNTER → 2017-09-01 | Outpatient (CLI) | payer OTHER ==
[~2017-09-01] MED LIST changes: +CYCL10TA PO; -CYCL1TAB29 PO; +D 50CAP2 PO; -HYDR-3516 PO; +ONABOTULINUMTOXINA INJ 100 UNITS/VIAL ONE; -TETR250C PO; -VITA100064 PO
== END ==
LOC: HEND 08:02
PROVIDERS: ATTEND Internal Medicine Gastroenterology
DX: R13.10 Dysphagia, unspecified (principal)
CPT/HCPCS: 91010

== ENCOUNTER → 2017-09-06 | Outpatient (CLI) | payer OTHER ==
[~2017-09-06] MED LIST changes: +CHLORHEXIDINE GLUCONATE 2 % 1 PACK (2 CLOTHS) TOPICAL PRN; +LACTATED RINGER'S 1000 ML IV PRN; +LIDOCAINE HCL 1% PF 5 ML SYRINGE OTHER ONE; +METOPROLOL TARTRATE 25 MG TAB PO PRN; +PHENYLEPH/NS 1000 MCG/10 ML SYR IV ONE; +POVIDONE IODINE 5% (ANTISEPSIS KIT) 4 APPLICATIONS EACH NARE PRN; +PROPOFOL 200 MG/20 ML AMP IV ONE; +SODIUM CHLORID 0.9% 500 ML IV PRN
[2017-09-06 09:35] VITALS: BP 125/75; PULSE 77; RESP 20; TEMP 98.4; O2SAT 98
[2017-09-06 12:26] VITALS: BP 145/66; PULSE 78; RESP 16; TEMP 97.6; O2SAT 100
--- NOTE | 2017-09-06 12:44 | PD.PROCEDR ---
GI Procedure PROCEDURE PERFORMED EGD with Botox injection into the LES with biopsy followed by an endoscopic ultrasound INDICATION FOR PROCEDURE History of achalasia, history of MALT lymphoma PROCEDURE: The procedure, risks and benefits were discussed with Ms. Hansen and informed consent was obtained. Anesthesia sedated her with Diprivan. She was placed in the left lateral decubitus position. EGD: The Pentax videoscope was introduced through the oropharynx and advanced to the second portion of the duodenum under direct visualization. Retroflexion was performed in the stomach. FINDINGS: The esophagus this appeared to be unremarkable and within normal limits 100 units of Botox were injected into the LES in 4 quadrants The stomach the gastric mucosa appeared to be diffusely erythemic and mildly nodular with superficial erosions specifically in the body and less so in the antrum biopsies were taken from the gastric body and from the antrum The duodenum this was normal Endoscopic ultrasound: The Pentax videoscope was introduced through the oropharynx and advanced to the stomach FINDINGS: The endoscopic ultrasound appearance of the gastric wall was basically unremarkable with no disruptions noted No lymphadenopathy Unremarkable pancreatic body and tail with a normal pancreatic duct ESTIMATED BLOOD LOSS: None SPECIMENS REMOVED: Gastric biopsies COMPLICATIONS: None IMPRESSION: History of achalasia History of MALT lymphoma Pangastritis PLAN: Await biopsies Follow-up in 3 weeks Og Pelletier MD Sep 06, 2017 12:44
== END ==
LOC: HSDC 08:32
PROVIDERS: ATTEND Internal Medicine Gastroenterology
DX: K22.0 Achalasia of cardia (principal); B96.81 Helicobacter pylori [H. pylori] as the cause of diseases classified elsewhere; C88.4 Extranodal marginal zone B-cell lymphoma of mucosa-associated lymphoid tissue [MALT-lymphoma]; K29.50 Unspecified chronic gastritis without bleeding
CPT/HCPCS: 00740; 43236; 43259; 88305; 88312; 88341; 88342; J0585; J2370

== ENCOUNTER 2017-10-10 03:05 | Emergency (ER) | payer OTHER ==
[~2017-10-10] VITALS: Ht 170.2 cm; Wt 75.0 kg
[~2017-10-10 03:05] MED LIST changes: -CHLORHEXIDINE GLUCONATE 2 % 1 PACK (2 CLOTHS) TOPICAL PRN; -LACTATED RINGER'S 1000 ML IV PRN; -LIDOCAINE HCL 1% PF 5 ML SYRINGE OTHER ONE; -METOPROLOL TARTRATE 25 MG TAB PO PRN; -ONABOTULINUMTOXINA INJ 100 UNITS/VIAL ONE; -PHENYLEPH/NS 1000 MCG/10 ML SYR IV ONE; -POVIDONE IODINE 5% (ANTISEPSIS KIT) 4 APPLICATIONS EACH NARE PRN; -PROPOFOL 200 MG/20 ML AMP IV ONE; -SODIUM CHLORID 0.9% 500 ML IV PRN
[2017-10-10 03:08] VITALS: BP 176/77; PULSE 79; RESP 16; TEMP 98.5; O2SAT 99
--- NOTE | 2017-10-10 03:23 | PD ---
HPI Chief Complaint: Injury Time Seen by Provider: 03:17 Travel History International Travel<30 days: No Contact w/Intl Traveler<30days: No Traveled to known affect area: No History of Present Illness HPI 62-year-old female presents to emergency department for evaluation of right wrist pain after a misstep and fall last evening. Patient states that she skinned her knee and kind of slid across the floor. She did not strike her head or lose consciousness. She did land on an outstretched right upper extremity. She's been having right wrist pain ever since. She states is been getting worse. Rates it a 8 out of 10, constant, throbbing. Pain is exacerbated by movement. She has no alterations in sensation. She has no other symptoms PFSH Past Medical History Arthritis: Yes Asthma: No Autoimmune Disease: No Blood Disorders: No Anxiety: No Depression: No Heart Rhythm Problems: No Cancer: Yes (MULT LYMPHOMA ) Cardiovascular Problems: No High Cholesterol: No Chemotherapy: No Chest Pain: No Congestive Heart Failure: No COPD: No Cerebrovascular Accident: No Diabetes: No Diminished Hearing: No Endocrine: No Gastrointestinal Disorders: Yes (LYPHOMA, GERD, TROUBLE SWALLOWING) GERD: No Glaucoma: No Genitourinary: No Headaches: No Hepatitis: No Hiatal Hernia: No Hypertension: No Immune Disorder: No Kidney Stones: No Musculoskeletal: No Neurologic: No Psychiatric: No Reproductive: No Respiratory: No Myocardial Infarction: No Radiation Therapy: No Renal Failure: No Seizures: No Sickle Cell Disease: No Sleep Apnea: No Thyroid Disease: Yes (REPORTS HAVING AN OVERACTIVE THYROID.) Ulcer: No Tetanus Vaccination: Unknown Influenza Vaccination: No ?: Not LMP: menapause Menopausal: Yes Past Surgical History Abdominal Surgery: No AICD: No Cardiac Surgery: No Ear Surgery: No Endocrine Surgery: No Eye Surgery: No Genitourinary Surgery: No Gynecologic Surgery: Yes (LEFT OOPHRECTOMY) Hysterectomy: Yes (STATES ONE OVARY REMOVED ONLY) Joint Replacement: No Neurologic Surgery: No Oral Surgery: No Pacemaker: No Thoracic Surgery: No Other Surgery: Yes (SPINAL TAP TO REMOVE CYST, THYROID SURGERY, REMOVAL OF 1 OVARY) Social History Alcohol Use: No Tobacco Use: No Substance Use: Yes (REPORTS QUIT USING COCAINE IN 1993) Allergies-Medications (Allergen,Severity, Reaction): Coded Allergies: aspirin (Verified Allergy, Severe, NAUSEA, 10/10/17) diclofenac (Verified Allergy, Severe, VOMITING, 10/10/17) penicillin G (Verified Adverse Reaction, Severe, VOMITING, 10/10/17) Reported Meds & Prescriptions Reported Meds & Active Scripts Active Gabapentin 300 Mg Cap 300 Mg PO BID Pantoprazole (Pantoprazole Sodium) 40 Mg Tab 40 Mg PO DAILY Levothyroxine (Levothyroxine Sodium) 25 Mcg Tab 25 Mcg PO DAILY 30 Days Reported D3 Maximum Strength (Cholecalciferol) 5,000 Unit Cap 5,000 Units PO DAILY Review of Systems Except as stated in HPI: all other systems reviewed are Neg Physical Exam Narrative GENERAL: Well-nourished, well-developed female patient in no acute distress. SKIN: Focused skin assessment warm/dry. HEAD: Normocephalic. Atraumatic EYES: No scleral icterus. No injection or drainage. NECK: Supple, trachea midline. No JVD or lymphadenopathy. CARDIOVASCULAR: Regular rate and rhythm without murmurs, gallops, or rubs. RESPIRATORY: Breath sounds equal bilaterally. No accessory muscle use. GASTROINTESTINAL: Abdomen soft, non-tender, nondistended. EXTREMITY: There is swelling and tenderness of the right distal forearm and wrist. There is no obvious deformity. The skin is intact. Flexion and extension of the fingers is normal. The fingers are warm and well perfused. Sensation to light touch is intact in the hand. MUSCULOSKELETAL: No cyanosis, or edema. BACK: Nontender without obvious deformity. No CVA tenderness. Data Data Last Documented VS Vital Signs Date Time Temp Pulse Resp B/P (MAP) Pulse Ox O2 Delivery O2 Flow Rate FiO2 10/10/17 03:08 98.5 79 16 176/77 (110) 99 Orders Orders Wrist, Complete (Env2gra) (10/10/17 ) Acetamin-Hydrocod 325-5 Mg ([place] 5-325 (10/10/17 03:30) MDM Medical Decision Making Medical Screen Exam Complete: Yes Emergency Medical Condition: Yes Medical Record Reviewed: Yes Differential Diagnosis Fracture versus sprain versus dislocation versus contusion Narrative Course 62-year-old female presents to emergency department for evaluation right wrist pain following a trip and fall. Patient appears without distress. The wrist is swollen without deformity. X-ray imaging is complete. No acute fracture seen. Patient is placed in a Velcro wrist splint. She is encouraged to follow- up with primary care provider and return immediately with acute worsening symptoms. Diagnosis Primary Impression: Right wrist sprain Qualified Codes: S63.501A - Unspecified sprain of right wrist, initial encounter Referrals: Primary Care Physician Patient Instructions: General Instructions, Wrist Sprain (ED) Additional Instructions: Ice and elevation should reduce pain and swelling. Wear brace for support Follow-up with a primary care provider Return immediately with acute worsening symptoms. Med/Other Pt SpecificInfo: Prescription(s) given Scripts Ibuprofen (Ibuprofen) 600 Mg Tab 600 MG PO Q8HR Y for PAIN, #30 TAB 0 Refills Prov: Mary Ann Blank 10/10/17 Disposition: 01 DISCHARGE HOME Condition: Stable Mary Ann Blank Oct 10, 2017 03:23
[2017-10-10] MEDS ORDERED: ACETAMINOPHEN/HYDROcodone 325 MG/5 MG TAB PO ONE (03:30)
--- NOTE | 2017-10-10 03:52 | RADRPT ---
EXAM DATE/TIME: 10/10/2017 03:28 [facility] COMPARISON: No previous studies available for comparison. INDICATIONS : Wrist pain from fall. MEDICAL HISTORY : None. SURGICAL HISTORY : None. ENCOUNTER: Initial ACUITY: 1 day PAIN SCORE: 3/10 LOCATION: Right wrist FINDINGS: No fracture seen. Carpal bones appear normally aligned. There is some degenerative change at the firs t MCP joint. CONCLUSION: No fracture is seen. Mandeep Rodriguez MD on October 10, 2017 at 3:48 Board Certified Radiologist. This report was verified electronically.
[2017-10-10] MEDS ORDERED: IBUP-232 PO (03:55)
== END 2017-10-10 04:37 | disposition home or self-care (01) ==
LOC: NEPD 03:05
DX: S63.501A Unspecified sprain of right wrist, initial encounter (principal); E05.90 Thyrotoxicosis, unspecified without thyrotoxic crisis or storm; W01.0XXA Fall on same level from slipping, tripping and stumbling without subsequent striking against object, initial encounter
CPT/HCPCS: 73110; 99283; L3908

== ENCOUNTER 2017-10-16 17:59 | Emergency (ER) | payer OTHER ==
[~2017-10-16 17:59] MED LIST changes: -CYCL10TA PO; +IBUP-232 PO
[2017-10-16 18:01] VITALS: BP 157/80; PULSE 92; RESP 14; TEMP 99.1; O2SAT 98
--- NOTE | 2017-10-16 21:07 | PD ---
HPI Chief Complaint: Musculoskeletal Complaint Time Seen by Provider: 21:00 Travel History International Travel<30 days: No Contact w/Intl Traveler<30days: No Traveled to known affect area: No History of Present Illness HPI 62-year-old female presents to the emergency department for evaluation right lower back pain radiating to her buttock and her thigh. Patient states that she fell 2 weeks ago onto her right side. She states she is not having any right hip or back pain then. She states this has developed of the course of the last few days and now is unbearable. She states it is very difficult to walk without pain shooting down her buttock to her thigh. Pain is an 8 out of 10. She denies any new injury. No saddle paresthesia, loss of bowel or bladder , or lower extremity weakness. She has no other symptoms to report. PFSH Past Medical History Arthritis: Yes Asthma: No Autoimmune Disease: No Blood Disorders: No Anxiety: No Depression: No Heart Rhythm Problems: No Cancer: Yes (MULT LYMPHOMA ) Cardiovascular Problems: No High Cholesterol: No Chemotherapy: No Chest Pain: No Congestive Heart Failure: No COPD: No Cerebrovascular Accident: No Diabetes: No Diminished Hearing: No Endocrine: No Gastrointestinal Disorders: Yes (LYPHOMA, GERD, TROUBLE SWALLOWING) GERD: No Glaucoma: No Genitourinary: No Headaches: No Hepatitis: No Hiatal Hernia: No Hypertension: No Immune Disorder: No Kidney Stones: No Musculoskeletal: No Neurologic: No Psychiatric: No Reproductive: No Respiratory: No Myocardial Infarction: No Radiation Therapy: No Renal Failure: No Seizures: No Sickle Cell Disease: No Sleep Apnea: No Thyroid Disease: Yes (REPORTS HAVING AN OVERACTIVE THYROID.) Ulcer: No Menopausal: Yes Past Surgical History Abdominal Surgery: No AICD: No Cardiac Surgery: No Ear Surgery: No Endocrine Surgery: No Eye Surgery: No Genitourinary Surgery: No Gynecologic Surgery: Yes (LEFT OOPHRECTOMY) Hysterectomy: Yes (STATES ONE OVARY REMOVED ONLY) Joint Replacement: No Neurologic Surgery: No Oral Surgery: No Pacemaker: No Thoracic Surgery: No Other Surgery: Yes (SPINAL TAP TO REMOVE CYST, THYROID SURGERY, REMOVAL OF 1 OVARY) Social History Alcohol Use: No Tobacco Use: No Substance Use: Yes (REPORTS QUIT USING COCAINE IN 1993) Allergies-Medications (Allergen,Severity, Reaction): Coded Allergies: aspirin (Verified Allergy, Severe, NAUSEA, 10/10/17) diclofenac (Verified Allergy, Severe, VOMITING, 10/10/17) penicillin G (Verified Adverse Reaction, Severe, VOMITING, 10/10/17) Reported Meds & Prescriptions Reported Meds & Active Scripts Active Medrol Dosepak (Methylprednisolone) 4 Mg Dspk 4 Mg PO DIRECTED Per Pharmacist direction Ibuprofen 600 Mg Tab 600 Mg PO Q8HR PRN Gabapentin 300 Mg Cap 300 Mg PO BID Pantoprazole (Pantoprazole Sodium) 40 Mg Tab 40 Mg PO DAILY Levothyroxine (Levothyroxine Sodium) 25 Mcg Tab 25 Mcg PO DAILY 30 Days Reported D3 Maximum Strength (Cholecalciferol) 5,000 Unit Cap 5,000 Units PO DAILY Review of Systems Except as stated in HPI: all other systems reviewed are Neg Physical Exam Narrative GENERAL: Well-nourished, well-developed female patient, ambulatory and in no acute distress SKIN: Focused skin assessment warm/dry. HEAD: Normocephalic. EYES: No scleral icterus. No injection or drainage. NECK: Supple, trachea midline. No JVD or lymphadenopathy. CARDIOVASCULAR: Regular rate and rhythm without murmurs, gallops, or rubs. RESPIRATORY: Breath sounds equal bilaterally. No accessory muscle use. GASTROINTESTINAL: Abdomen soft, non-tender, nondistended. MUSCULOSKELETAL: No cyanosis, or edema. Positive right-sided straight leg. Tenderness elicited palpation right sacroiliac joint. Patient reports pain with flexion of the right hip. Distal pulses are palpable. Cap refill is within normal limits. BACK: Nontender without obvious deformity. No CVA tenderness. Data Data Last Documented VS Vital Signs Date Time Temp Pulse Resp B/P (MAP) Pulse Ox O2 Delivery O2 Flow Rate FiO2 10/16/17 22:16 10/16/17 18:01 99.1 92 14 98 Orders Orders Ketorolac Inj (Toradol Inj) (10/16/17 21:15) Orphenadrine Inj (Norflex Inj) (10/16/17 21:15) Hip, Uni(Ap&Lat) W Ap Pelvis (10/16/17 ) Ed Discharge Order (10/16/17 22:08) MDM Medical Decision Making Medical Screen Exam Complete: Yes Emergency Medical Condition: Yes Medical Record Reviewed: Yes Differential Diagnosis Low back pain versus discogenic pain versus sciatica versus hip fracture versus sprain versus contusion Narrative Course 62-year-old female presents to emergency department for evaluation. Physical exam is consistent with sciatica. X-ray of the pelvis and hip confirms no acute bony abnormality. Patient is treated for pain and counseled on care. She is encouraged follow-up with primary care provider and return immediately with any acute worsening of symptoms. Diagnosis Primary Impression: Sciatica of right side Referrals: Primary Care Physician Patient Instructions: General Instructions, Sciatica (ED) Departure Forms: Tests/Procedures, Work Release Enter return to work date: Oct 18, 2017 Additional Instructions: Ice and/or warm moist heat may help to alleviate symptoms Follow up with a primary care provider Avoid heavy lifting, bending, and twisting Return to ED with acute worsening of symptoms Med/Other Pt SpecificInfo: Prescription(s) given Scripts Methylprednisolone Dosepak (Medrol Dosepak) 4 Mg Dspk 4 MG PO DIRECTED, #1 DSPK 0 Refills Per Pharmacist direction Prov: Mary Ann Blank 10/16/17 Disposition: 01 DISCHARGE HOME Condition: Stable Mary Ann Blank Oct 16, 2017 21:07
[2017-10-16] MEDS ORDERED: ORPHENADRINE INJ 60 MG/2 ML AMP IM ONE (21:15)
[2017-10-16] MEDS ORDERED: KETOROLAC TROMETHAMINE 60 MG/2 ML (IM) VIAL IM ONE (21:15)
--- NOTE | 2017-10-16 22:03 | RADRPT ---
EXAM DATE/TIME: 10/16/2017 21:27 [facility] COMPARISON: No previous studies available for comparison. INDICATIONS : Right hip pain after fall. MEDICAL HISTORY : None. SURGICAL HISTORY : None. ENCOUNTER: Initial ACUITY: 2 days PAIN SCORE: 10/10 LOCATION: Right posterior hip. FINDINGS: Examination of the right hip was performed with AP Pelvis. The primary and secondary trabecular mason christine of the femoral neck is intact. The hip joint is of normal width without significant sclerosis or bony hypertrophy. The acetabulum is grossly intact. CONCLUSION: 1. No acute findings. Panfilo Magana MD on October 16, 2017 at 22:01 Board Certified Radiologist. This report was verified electronically.
[2017-10-16] MEDS ORDERED: MEDR4PAK PO (22:10)
== END 2017-10-16 22:29 | disposition home or self-care (01) ==
LOC: NEPK 17:59
DX: M54.41 Lumbago with sciatica, right side (principal)
CPT/HCPCS: 73502; 96372; 99284; J1885; J2360

== ENCOUNTER 2018-01-06 | Emergency (ER) | payer OTHER ==
[~2018-01-06] MED LIST changes: +MEDR4PAK PO
[2018-01-06 00:09] VITALS: BP 174/74; PULSE 77; RESP 18; TEMP 97.9; O2SAT 98
[2018-01-06] MEDS ORDERED: KETOROLAC TROMETHAMINE 30 MG/ML (IVP) VIAL IV PUSH ONE (01:00)
[2018-01-06] MEDS ORDERED: ONDANSETRON HCL 4 MG/2 ML VIAL IV PUSH ONE (01:00)
[2018-01-06] MEDS ORDERED: MORPHINE SULFATE 4 MG/ML INJ IV PUSH ONE (01:00)
--- NOTE | 2018-01-06 01:08 | PD ---
HPI Chief Complaint: Abdominal Pain Time Seen by Provider: 00:25 Travel History International Travel<30 days: No Contact w/Intl Traveler<30days: No Traveled to known affect area: No History of Present Illness HPI MALT lymphoma with Helicobacter infection. She underwent CT scan of the abdomen and pelvis which showed thickening of the gastroesophageal junction. She underwent upper EGD on 04/06/2017; she was found to have duodenitis. There were multiple superficial ulcerations and severe gastritis in the antrum. There was also an ulcer which was suspicious for malignancy in the lesser curvature. 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 Now pt is here with lower back pain which g=has been recurrent and was in ER few months ago for same complaint now lower back pain and bilateral sciatic like radiation PFSH Past Medical History Arthritis: Yes Asthma: No Autoimmune Disease: No Blood Disorders: No Anxiety: No Depression: No Heart Rhythm Problems: No Cancer: Yes (MULT LYMPHOMA ) Cardiovascular Problems: No High Cholesterol: No Chemotherapy: No Chest Pain: No Congestive Heart Failure: No COPD: No Cerebrovascular Accident: No Diabetes: No Diminished Hearing: No Endocrine: No Gastrointestinal Disorders: Yes (LYPHOMA, GERD, TROUBLE SWALLOWING) GERD: No Glaucoma: No Genitourinary: No Headaches: No Hepatitis: No Hiatal Hernia: No Hypertension: No Immune Disorder: No Kidney Stones: No Musculoskeletal: No Neurologic: No Psychiatric: No Reproductive: No Respiratory: No Myocardial Infarction: No Radiation Therapy: No Renal Failure: No Seizures: No Sickle Cell Disease: No Sleep Apnea: No Thyroid Disease: Yes (REPORTS HAVING AN OVERACTIVE THYROID.) Ulcer: No ?: Not Menopausal: Yes Past Surgical History Abdominal Surgery: No AICD: No Cardiac Surgery: No Ear Surgery: No Endocrine Surgery: No Eye Surgery: No Genitourinary Surgery: No Gynecologic Surgery: Yes (LEFT OOPHRECTOMY) Hysterectomy: Yes (STATES ONE OVARY REMOVED ONLY) Joint Replacement: No Neurologic Surgery: No Oral Surgery: No Pacemaker: No Thoracic Surgery: No Other Surgery: Yes (SPINAL TAP TO REMOVE CYST, THYROID SURGERY, REMOVAL OF 1 OVARY) Social History Alcohol Use: No Tobacco Use: No Substance Use: Yes (REPORTS QUIT USING COCAINE IN 1993) Allergies-Medications (Allergen,Severity, Reaction): Coded Allergies: aspirin (Verified Allergy, Severe, NAUSEA, 01/07/18) diclofenac (Verified Allergy, Severe, VOMITING, 01/07/18) penicillin G (Verified Adverse Reaction, Severe, VOMITING, 01/07/18) Reported Meds & Prescriptions Reported Meds & Active Scripts Active Flexeril (Cyclobenzaprine HCl) 10 Mg Tab 10 Mg PO TID 5 Days Brock (Hydrocodone-Acetaminophen) 5 Mg-325 Mg Tab 1 Tab PO Q6H PRN Gabapentin 300 Mg Cap 300 Mg PO BID Pantoprazole (Pantoprazole Sodium) 40 Mg Tab 40 Mg PO DAILY Reported D3 Maximum Strength (Cholecalciferol) 5,000 Unit Cap 5,000 Units PO DAILY Review of Systems Except as stated in HPI: all other systems reviewed are Neg Physical Exam Narrative GENERAL: non toxic appearing no signs of sepsis SKIN: Warm and dry. HEAD: Atraumatic. Normocephalic. EYES: Pupils equal and round. No scleral icterus. No injection or drainage. ENT: No nasal bleeding or discharge. Mucous membranes pink and moist. NECK: Trachea midline. No JVD. CARDIOVASCULAR: Regular rate and rhythm. RESPIRATORY: No accessory muscle use. Clear to auscultation. Breath sounds equal bilaterally. GASTROINTESTINAL: Abdomen distended tenderness to suprapubic mild and LOWER BACK left lumbral tender to gluteal areas. MUSCULOSKELETAL: Extremities without clubbing, cyanosis, or edema. No obvious deformities. NEUROLOGICAL: Awake and alert. No obvious cranial nerve deficits. Motor grossly within normal limits. Five out of 5 muscle strength in the arms and legs. Normal speech. PSYCHIATRIC: Appropriate mood and affect; insight and judgment normal. Data Data Last Documented VS Vital Signs Date Time Temp Pulse Resp B/P (MAP) Pulse Ox O2 Delivery O2 Flow Rate FiO2 01/06/18 03:09 70 16 136/65 (88) 99 Room Air 01/06/18 00:09 97.9 Orders Orders Ketorolac Inj (Toradol Inj) (01/06/18 01:00) Morphine Inj (Morphine Inj) (01/06/18 01:00) Ondansetron Inj (Zofran Inj) (01/06/18 01:00) Complete Blood Count With Diff (01/06/18 00:57) Comprehensive Metabolic Panel (01/06/18 00:57) Troponin I (01/06/18 00:57) Lipase (01/06/18 00:57) Urinalysis - C+S If Indicated (01/06/18 00:57) Ed Discharge Order (01/06/18 02:46) Electrocardiogram (01/06/18 00:29) Labs Laboratory Tests Test 01/06/18 01:00 01/06/18 01:05 White Blood Count 5.9 TH/MM3 Red Blood Count 4.33 MIL/MM3 Hemoglobin 12.1 GM/DL Hematocrit 36.2 % Mean Corpuscular Volume 83.6 FL Mean Corpuscular Hemoglobin 27.9 PG Mean Corpuscular Hemoglobin Concent 33.4 % Red Cell Distribution Width 13.6 % Platelet Count 233 TH/MM3 Mean Platelet Volume 8.8 FL Neutrophils (%) (Auto) 55.6 % Lymphocytes (%) (Auto) 27.8 % Monocytes (%) (Auto) 10.3 % Eosinophils (%) (Auto) 5.6 % Basophils (%) (Auto) 0.7 % Neutrophils # (Auto) 3.3 TH/MM3 Lymphocytes # (Auto) 1.6 TH/MM3 Monocytes # (Auto) 0.6 TH/MM3 Eosinophils # (Auto) 0.3 TH/MM3 Basophils # (Auto) 0.0 TH/MM3 CBC Comment DIFF FINAL Differential Comment Blood Urea Nitrogen 11 MG/DL Creatinine 0.77 MG/DL Random Glucose 132 MG/DL Total Protein 7.3 GM/DL Albumin 3.4 GM/DL Calcium Level 8.8 MG/DL Alkaline Phosphatase 110 U/L Aspartate Amino Transf (AST/SGOT) 24 U/L Alanine Aminotransferase (ALT/SGPT) 32 U/L Total Bilirubin 0.2 MG/DL Sodium Level 144 MEQ/L Potassium Level 3.5 MEQ/L Chloride Level 110 MEQ/L Carbon Dioxide Level 27.5 MEQ/L Anion Gap 7 MEQ/L Estimat Glomerular Filtration Rate 93 ML/MIN Troponin I LESS THAN 0.02 NG/ML Lipase 144 U/L Urine Color YELLOW Urine Turbidity CLEAR Urine pH 5.5 Urine Specific [place] 1.023 Urine Protein NEG mg/dL Urine Glucose (UA) NEG mg/dL Urine Ketones NEG mg/dL Urine Occult Blood NEG Urine Nitrite NEG Urine Bilirubin NEG Urine Urobilinogen LESS THAN 2.0 MG/DL Urine Leukocyte Esterase TRACE Urine RBC 1 /hpf Urine WBC 2 /hpf Urine Squamous Epithelial Cells 1 /hpf Urine Mucus FEW /lpf Microscopic Urinalysis Comment CULT NOT INDICATED MDM Medical Decision Making Medical Screen Exam Complete: Yes Emergency Medical Condition: Yes Differential Diagnosis muscle strain vs disc disease vs radiculopathy vs pain of lymphoma other Narrative Course Toradol and morphine pt feels much better and I feel no need for further work up at this time pt has [facility] MD connected to [place] and close follow up recommended ..Pt feels comfortable going home for outpt treatment . Diagnosis Primary Impression: Back pain Qualified Codes: M54.42 - Lumbago with sciatica, left side Patient Instructions: Acute Low Back Pain (ED), General Instructions Disposition: 01 DISCHARGE HOME Condition: Good Marquez Muhammad MD Jan 06, 2018 01:08
[2018-01-06 01:12] LABS: AUTOMATED NEUTROPHIL # 3.3 TH/MM3 (1.8-7.7); BASOPHIL % 0.7 % (0.0-2.0); EOSINOPHIL # 0.3 TH/MM3 (0-0.4); EOSINOPHIL % 5.6 % (0.0-4.0); HEMATOCRIT 36.2 % (35.0-46.0); HEMOGLOBIN 12.1 GM/DL (11.6-15.3); LYMPH % 27.8 % (9.0-44.0); LYMPHOCYTE # 1.6 TH/MM3 (1.0-4.8); MEAN CELL VOLUME 83.6 FL (80.0-100.0); MEAN CORPUSCULAR HEMOGLOBIN 27.9 PG (27.0-34.0); MEAN CORPUSCULAR HGB CONC 33.4 % (32.0-36.0); MEAN PLATELET VOLUME 8.8 FL (7.0-11.0); MONO % 10.3 % (0.0-8.0); MONOCYTE # 0.6 TH/MM3 (0-0.9); NEUT % 55.6 % (16.0-70.0); PLATELET COUNT 233 TH/MM3 (150-450); RED BLOOD COUNT 4.33 MIL/MM3 (4.00-5.30); RED CELL DISTRIBUTION WIDTH 13.6 % (11.6-17.2); WHITE BLOOD COUNT 5.9 TH/MM3 (4.0-11.0)
[2018-01-06 01:19] LABS: BILIRUBIN, URINE NEG (NEG); BLOOD, URINE NEG (NEG); GLUCOSE,URINE NEG (NEG); KETONE, URINE NEG (NEG); MUCUS URINE FEW /lpf (OCC); NITRITE,URINE NEG (NEG); PH, URINE 5.5 (5.0-8.5); SQUAMOUS EPITHELIAL CELL URINE 1 /hpf (0-5); URINE COLOR YELLOW (YELLW/STRAW); URINE LEUKOCYTE ESTERASE TRACE (NEG)
[2018-01-06 01:27] LABS: ALBUMIN 3.4 GM/DL (3.4-5.0); ALT (GPT) 32 U/L (10-53); AST (GOT) 24 U/L (15-37); BICARBONATE 27.5 MEQ/L (21.0-32.0); BLOOD UREA NITROGEN 11 MG/DL (7-18); CALCIUM 8.8 MG/DL (8.5-10.1); CHLORIDE 110 MEQ/L (98-107); CREATININE 0.77 MG/DL (0.50-1.00); GLOMERULAR FILTRATION RATE 93 ML/MIN (>89); GLUCOSE,RANDOM 132 MG/DL (74-106); SODIUM (NA) 144 MEQ/L (136-145)
[2018-01-06 01:31] LABS: ALKALINE PHOSPHATASE 110 U/L (45-117); TOTAL BILIRUBIN ADULT 0.2 MG/DL (0.2-1.0); TOTAL PROTEIN 7.3 GM/DL (6.4-8.2); TROPONIN I LESS THAN 0.02 NG/ML (0.02-0.05)
[2018-01-06 03:09] VITALS: BP 136/65; PULSE 70; RESP 16; O2SAT 99
--- NOTE | 2018-01-06 16:58 | EKG ---
Date Performed: 01/06/2018 Time Performed: 00:29:16 PTAGE: 62 years EKG: Sinus rhythm MODERATE T-WAVE ABNORMALITY, CONSIDER ANTEROLATERAL ISCHEMIA ABNORMAL ECG Since the PREVIOUS TRACING , no significant change noted PREVIOUS TRACING 04/21/17 @ 16.15 DOCTOR: Mei Wisdom Interpretating Date/Time 01/06/2018 16:57:41
[2018-01-07] MEDS ORDERED: CYCL10TA PO (12:39)
[2018-01-07] MEDS ORDERED: NORC5TAB PO (12:39)
== END 2018-01-06 03:09 | disposition home or self-care (01) ==
LOC: NEPE
DX: C88.4 Extranodal marginal zone B-cell lymphoma of mucosa-associated lymphoid tissue [MALT-lymphoma] (principal); M54.42 Lumbago with sciatica, left side; R94.31 Abnormal electrocardiogram [ECG] [EKG]; Z79.899 Other long term (current) drug therapy
CPT/HCPCS: 80053; 81001; 83690; 84484; 85025; 93005; 96374; 96375; 99284; J1885; J2270; J2405

== ENCOUNTER 2018-01-07 09:07 | Emergency (ER) | payer OTHER ==
[~2018-01-07] VITALS: Ht 170.2 cm; Wt 75.0 kg
[2018-01-07 09:14] VITALS: BP 184/81; PULSE 70; RESP 18; TEMP 98.3; O2SAT 98
[2018-01-07 09:28] VITALS: BP 176/79; PULSE 75; RESP 19; O2SAT 98
[2018-01-07] MEDS ORDERED: MORPHINE SULFATE 4 MG/ML INJ IV PUSH ONE ×2 (09:45→12:45)
[2018-01-07] MEDS ORDERED: ONDANSETRON HCL 4 MG/2 ML VIAL IV PUSH ONE (09:45)
--- NOTE | 2018-01-07 09:45 | PD ---
HPI Chief Complaint: Pain: Acute or Chronic Time Seen by Provider: 09:27 Travel History International Travel<30 days: No Contact w/Intl Traveler<30days: No Traveled to known affect area: No History of Present Illness HPI The patient is a 62-year-old -[place] female who presents to emergency department for low back pain. The patient states she went to bed night feeling well, awakened Monday morning with low back pain. The patient cannot recall an initial injury to the affected area, thought maybe she slept wrong and developed back pain. However, the back pain progressed since she was seen in the emergency department on Monday night, states she had blood work and a UA that was unremarkable and was discharged home with pain medications. The patient states the pain is worse when she wakes up in the morning, has been present for the last several days, and is located in the low back. The pain radiates across the low back around the pelvis and occasionally down the lower extremities, but never farther than the knees. She does have a history of previous back surgery. She also has a history of lymphoma, recently underwent chemotherapy and is scheduled to undergo CT to evaluate for possible radiation therapy. She is followed by her oncologist, Dr. Gaston. She does not have a local primary physician. She denies any fever, chills, sweats, urinary incontinence, frequency, urgency, or dysuria. PFSH Past Medical History Arthritis: Yes Asthma: No Autoimmune Disease: No Blood Disorders: No Anxiety: No Depression: No Heart Rhythm Problems: No Cancer: Yes (MULT LYMPHOMA ) Cardiovascular Problems: No High Cholesterol: No Chemotherapy: Yes (12/14/17) Chest Pain: No Congestive Heart Failure: No COPD: No Cerebrovascular Accident: No Diabetes: No Diminished Hearing: No Endocrine: No Gastrointestinal Disorders: Yes (LYPHOMA, GERD, TROUBLE SWALLOWING) GERD: No Glaucoma: No Genitourinary: No Headaches: No Hepatitis: No Hiatal Hernia: No Hypertension: No Immune Disorder: No Kidney Stones: No Musculoskeletal: No Neurologic: No Psychiatric: No Reproductive: No Respiratory: No Myocardial Infarction: No Radiation Therapy: No Renal Failure: No Seizures: No Sickle Cell Disease: No Sleep Apnea: No Thyroid Disease: Yes (REPORTS HAVING AN OVERACTIVE THYROID.) Ulcer: No Influenza Vaccination: No Menopausal: Yes Past Surgical History Abdominal Surgery: No AICD: No Cardiac Surgery: No Ear Surgery: No Endocrine Surgery: No Eye Surgery: No Genitourinary Surgery: No Gynecologic Surgery: Yes (LEFT OOPHRECTOMY) Hysterectomy: Yes (STATES ONE OVARY REMOVED ONLY) Joint Replacement: No Neurologic Surgery: No Oral Surgery: No Pacemaker: No Thoracic Surgery: No Other Surgery: Yes (SPINAL TAP TO REMOVE CYST, THYROID SURGERY,) Social History Alcohol Use: No Tobacco Use: No Substance Use: No (REPORTS QUIT USING COCAINE IN 1993) Allergies-Medications (Allergen,Severity, Reaction): Coded Allergies: aspirin (Verified Allergy, Severe, NAUSEA, 01/07/18) diclofenac (Verified Allergy, Severe, VOMITING, 01/07/18) penicillin G (Verified Adverse Reaction, Severe, VOMITING, 01/07/18) Reported Meds & Prescriptions Reported Meds & Active Scripts Active Gabapentin 300 Mg Cap 300 Mg PO BID Pantoprazole (Pantoprazole Sodium) 40 Mg Tab 40 Mg PO DAILY Reported D3 Maximum Strength (Cholecalciferol) 5,000 Unit Cap 5,000 Units PO DAILY Review of Systems Except as stated in HPI: all other systems reviewed are Neg General / Constitutional: No: Fever Cardiovascular: No: Chest Pain or Discomfort Respiratory: No: Shortness of Breath Gastrointestinal: No: Nausea, Vomiting, Abdominal Pain Genitourinary: No: Urgency, Frequency, Dysuria, Incontinence Musculoskeletal: Positive: Pain, No: Weakness Skin: No Rash Neurologic: No: Paresthesia, Sensory Disturbance Physical Exam Narrative GENERAL: Awake, alert, pleasant 8-year-old female who appears her stated age and is in no acute respiratory distress. SKIN: Focused skin assessment warm/dry. HEAD: Atraumatic. Normocephalic. EYES: No injection or drainage per NECK: Trachea midline. No JVD. CARDIOVASCULAR: Regular rate and rhythm. No murmur appreciated. RESPIRATORY: No accessory muscle use. Clear to auscultation. Breath sounds equal bilaterally. GASTROINTESTINAL: Abdomen soft, non-tender, nondistended. Back: No tenderness over the thoracic vertebrae. Mild tenderness of the trapezius bilateral. Mild tenderness over the inferior lumbar spine. Well- healed scar noted. Normal tenderness of the sacroiliac bilateral. No obvious deformity. MUSCULOSKELETAL: Flexion of the great toes bilateral is 5 out of 5. Plantarflexion is 5 out of 5. Dorsiflexion is 5 out of 5. Extension of the knees bilateral 5 out of 5. Flexion of the hips bilaterally is 5 out of 5. Positive dorsalis pedal pulses. NEUROLOGICAL: Awake and alert. No obvious cranial nerve deficits. Motor grossly within normal limits. Normal speech. PSYCHIATRIC: Appropriate mood and affect; insight and judgment normal. Data Data Last Documented VS Vital Signs Date Time Temp Pulse Resp B/P (MAP) Pulse Ox O2 Delivery O2 Flow Rate FiO2 01/07/18 09:28 75 19 176/79 (111) 98 Room Air 01/07/18 09:14 98.3 Orders Orders Morphine Inj (Morphine Inj) (01/07/18 09:45) Ondansetron Inj (Zofran Inj) (01/07/18 09:45) Ct Lumb Spine W/O Contrast (01/07/18 ) MDM Medical Decision Making Medical Screen Exam Complete: Yes Emergency Medical Condition: Yes Medical Record Reviewed: Yes Interpretation(s) Last Impressions Lumbar Spine CT 01/07/18 0000 Signed Impressions: Service Date/Time: Sunday, January 07, 2018 11:41 - CONCLUSION: There is significant degenerative facet disease worse at the L3-4 level suggesting motion at this level. Mild disc disease is scattered throughout the remainder of the spine. I don't see significant acute disc herniation. Jean Gonzalez MD FACR Differential Diagnosis Differential diagnosis includes musculoskeletal pain, lumbar ago, spinal stenosis, herniated disc, spondylolisthesis, metastatic disease, epidural abscess. Narrative Course IV was established and the patient was administered morphine and Zofran. Noncontrast CT lumbar spine was ordered to evaluate for possible metastatic disease. I reviewed the patient's EMR, laboratory evaluation performed on Monday was unremarkable, UA was negative. The patient does have multiple visits for back pain in the past, however, they have been spread out since 2005 , no chronic and habitual evaluations for back pain. CT reveals degenerative disc disease with facet arthropathy, no acute fractures. No mention of metastasis. The patient was reevaluated at 12:35 PM. The patient's pain had somewhat improved, however, was still present. Therefore, a second dose of morphine was administered. The patient be discharged home on pain medication and muscle relaxers. She is advised to follow-up with a primary physician. Diagnosis Primary Impression: Back pain Qualified Codes: M54.5 - Low back pain Referrals: [facility] as needed Patient Instructions: General Instructions Additional Instructions: Medications as directed. Follow-up with your oncologist. Follow-up with a primary physician. Apply heat to the affected area. Activity as tolerated. Med/Other Pt SpecificInfo: Prescription(s) given Scripts Cyclobenzaprine (Flexeril) 10 Mg Tab 10 MG PO TID for Muscle Spasm for 5 Days, #15 TAB 0 Refills Prov: Festus Dupree MD 01/07/18 Hydrocodone-Acetaminophen ([place]) 5 Mg-325 Mg Tab 1 TAB PO Q6H Y for PAIN, #12 TAB 0 Refills Prov: Festus Dupree MD 01/07/18 Disposition: 01 DISCHARGE HOME Condition: Stable Festus Dupree MD Jan 07, 2018 09:45
--- NOTE | 2018-01-07 12:15 | RADRPT ---
EXAM DATE/TIME: 01/07/2018 11:41 [facility] COMPARISON: No previous studies available for comparison. INDICATIONS : Woke up elza with back pain, waist level. RADIATION DOSE: 35.86 CTDIvol (mGy) MEDICAL HISTORY : Lymphoma. Gastroesophageal reflux disease. Hyperthyroidism. SURGICAL HISTORY : Hysterectomy. Left ovary ENCOUNTER: Initial ACUITY: 2 days PAIN SCALE: 8/10 LOCATION: Bilateral low back TECHNIQUE: Volumetric scanning of the lumbar spine was performed. Multiplanar reconstructions in the sagittal, coronal and oblique axial planes were performed. Using automated exposure control and adjustment of the mA and/or kV according to patient size, radiation dose was kept as low as reasonab ly achievable to obtain optimal diagnostic quality images. DICOM format image data is available mery ctronically for review and comparison. FINDINGS: VERTEBRAE: Normal vertebral body height. ALIGNMENT: No evidence of subluxation. T12-L1: Mild bulging is evident without significant spinal stenosis L1-L2: Mild bulging present no significant spinal stenosis no hematocrit. L2-L3: The thecal sac has a normal diameter. No evidence of disc bulge or protrusion. The neural foramina are patent bilaterally. L3-L4: Moderate facet degenerative changes mild disc bulging and bilateral neural foramina encroachme nt. Lateral recesses are stenotic. L4-L5: Generalized bulging present mild facet disease and bilateral neural foraminal encroachment L5-S1: Mild generalized disc bulging and moderate bilateral neural foramina encroachment. Degenerati ve changes both SI joints. Reviewed effe significant degenerative facet disease worse at the L3-4 le nancy suggesting motion at this level. Mild disc disease is scattered throughout the remainder of the spine. I don't see significant acute disc herniation. CONCLUSION: There is significant degenerative facet disease worse at the L3-4 level suggesting mo tion at this level. Mild disc disease is scattered throughout the remainder of the spine. I don't see significant acute disc herniation. Jean Gonzalez MD FACR on January 07, 2018 at 12:07 Board Certified Radiologist. This report was verified electronically.
[2018-01-07] MEDS ORDERED: NORC5TAB PO (12:39)
[2018-01-07] MEDS ORDERED: CYCL10TA PO (12:39)
== END 2018-01-07 13:17 | disposition home or self-care (01) ==
LOC: NEPC 09:07
DX: M54.5 Low back pain (principal); C85.88 Other specified types of non-Hodgkin lymphoma, lymph nodes of multiple sites; M51.36 Other intervertebral disc degeneration, lumbar region; M19.90 Unspecified osteoarthritis, unspecified site; K21.9 Gastro-esophageal reflux disease without esophagitis; E05.90 Thyrotoxicosis, unspecified without thyrotoxic crisis or storm
CPT/HCPCS: 72131; 96374; 96375; 96376; 99284; J2270; J2405

== ENCOUNTER → 2018-02-09 | Outpatient (CLI) | payer OTHER ==
[~2018-02-09] VITALS: Ht 170.2 cm; Wt 75.9 kg
[~2018-02-09] MED LIST changes: +CHLORHEXIDINE GLUCONATE 2 % 1 PACK (2 CLOTHS) TOPICAL PRN; +CYCL10TA PO; +DEXTROSE 5%-LACTATED RING INJ 1,000 ML IV SCH; -IBUP-232 PO; +LACTATED RINGER'S 1000 ML IV PRN; -LEVO25TA4 PO; +LIDOCAINE HCL 1% PF 5 ML SYRINGE OTHER ONE; -MEDR4PAK PO; +METOPROLOL TARTRATE 25 MG TAB PO PRN; +POVIDONE IODINE 5% (ANTISEPSIS KIT) 4 APPLICATIONS EACH NARE PRN; +PROPOFOL 200 MG/20 ML AMP IV ONE; +SODIUM CHLORID 0.9% 500 ML IV PRN; +VITA500T4 PO
--- NOTE | 2018-02-09 11:24 | GIPROC ---
[facility] [address] [facility]. [facility], [address] EGD PROCEDURE REPORT EXAM DATE: 02/09/2018 PATIENT NAME: Selina Hansen MR #: [id number] BIRTHDATE: 1955 ATTENDING: Bere Caldera MD ORDER #: [id number] FIRMWARE ENGINEER: Kristel Shaw and Pretty Castaneda STATUS: outpatient INDICATIONS: The patient is a 62 yr old female here for an EGD due to fu post treatment MALT lymphoma, h.pylori infection PROCEDURE PERFORMED: EGD w/ biopsy MEDICATIONS: None and Per Anesthesia. TOPICAL ANESTHETIC: none CONSENT: The patient understands the risks and benefits of the procedure and understands that these risks include, but are not limited to: sedation, allergic reaction, infection, perforation and/or bleeding. Alternative means of evaluation and treatment include, among others: physical exam, x-rays, and/or surgical intervention. The patient elects to proceed with this endoscopic procedure. medical equipment was checked for proper function. Hand hygiene and appropriate measures for infection prevention was taken. After the risks, benefits and alternatives of the procedure were thoroughly explained, Informed consent was verified, confirmed and timeout was successfully executed by the treatment team. The patient was anesthetized with topical anesthesia and the Pentax [id number] endoscope was introduced through the mouth and advanced to the second portion of the duodenum. Retroflexed views revealed a hiatal hernia The gastroscope was then slowly withdrawn and removed. Gastrtiis antrum, body-multiple biopsies from antrum/body/fundus-NBI scope used duodenum normal-biopsy to r/o celiac disease from bulb and second portion esophagitis distal esophagus -biopsy. ADVERSE EVENTS: There were no complications. IMPRESSIONS: 1. Gastrtiis antrum, body-multiple biopsies from antrum/body/fundus-NBI scope used duodenum normal-biopsy to r/o celiac disease from bulb and second portion esophagitis distal esophagus -biopsy 2. Retroflexed views revealed a hiatal hernia RECOMMENDATIONS: 1. Await biopsy results. Biopsy results will not be ready for 7-10 days. If you don't hear from us in two weeks, call our office for biopsy results. 2. Anti-reflux regimen 3. Continue PPI 4. Avoid NSAIDS PATIENT CONDITION: stable DISPOSITION: Home REPEAT EXAM: Return 3 months EGD Bere Caldera MD eSigned: Bere Caldera MD 02/09/2018 11:24 AM cc:
[2018-02-09 12:10] VITALS: BP 168/84; PULSE 78; RESP 18; TEMP 98.2; O2SAT 100
== END ==
LOC: HSDC 08:15
PROVIDERS: ATTEND Internal Medicine Gastroenterology
DX: K21.0 Gastro-esophageal reflux disease with esophagitis (principal); K29.00 Acute gastritis without bleeding; B96.81 Helicobacter pylori [H. pylori] as the cause of diseases classified elsewhere; C88.4 Extranodal marginal zone B-cell lymphoma of mucosa-associated lymphoid tissue [MALT-lymphoma]
CPT/HCPCS: 00731; 43239; 81261; 88305; 88312; 88341; 88342; J7120

== ENCOUNTER 2018-05-13 20:51 | Observation (INO) ==
[2018-05-13 21:47] LABS: Baso % (Auto) 0.6 % (0.0-2.0); Eos # (Auto) 0.3 th/mm3 (0.0-0.4); Eos % (Auto) 8.9 % (0.0-4.0); Hematocrit 43.8 % (35.0-46.0); Hemoglobin 14.4 gm/dL (11.6-15.3); Lymph # (Auto) 0.2 th/mm3 (1.0-4.8); Lymph % (Auto) 5.3 % (9.0-44.0); Mean Corpuscular Hemoglobin 27.9 pg (27.0-34.0); Mean Corpuscular Volume 84.5 fL (80.0-100.0); Mean Platelet Volume 9.3 fL (7.0-11.0); Mono # (Auto) 0.3 th/mm3 (0.0-0.9); Mono % (Auto) 11.3 % (0.0-8.0); Neut # (Auto) 2.3 th/mm3 (1.8-7.7); Neut % (Auto) 73.9 % (16.0-70.0); Platelet Count 44 th/mm3 (150-450); Red Blood Count 5.18 mil/mm3 (4.00-5.30); Red Cell Distribution Width 14.1 % (11.6-17.2); White Blood Count 3.1 th/mm3 (4.0-11.0)
[2018-05-13 21:59] LABS: Activated Partial Thrombo Time 27.8 sec (24.3-30.1); Albumin 3.5 g/dL (3.4-5.0); Anion Gap 11 meq/L (5-15); Aspartate Aminotransferase 42 U/L (15-37); Blood Urea Nitrogen 7 mg/dL (7-18); Calcium 9.3 mg/dL (8.5-10.1); Carbon Dioxide 24.3 meq/L (21.0-32.0); Chloride 98 meq/L (98-107); Glomerular Filtration Rate Greater Than 89 mL/min (>89); Glucose,Random 112 mg/dL (74-106); INR 1.2 Ratio; Lipase 56 U/L (73-393); Magnesium 1.8 mg/dL (1.5-2.5); Potassium 4.2 meq/L (3.5-5.1); Prothrombin Time 11.8 sec (9.8-11.6); Sodium 133 meq/L (136-145)
[2018-05-13 22:00] LABS: Alanine Aminotransferase 42 U/L (10-53)
--- NOTE | 2018-05-13 22:00 | XR ---
EXAM DATE: 05/13/2018 9:43 PM EDT AGE/SEX: 62 years / Female INDICATIONS: Shortness of breath. CLINICAL DATA: This is the patient's initial encounter. Patient reports that signs and symptoms have been present for 1 day and indicates a pain score of 0/10. MEDICAL/SURGICAL HISTORY: Rheumatoid arthritis. None. COMPARISON: [facility] [place] 2V PA&LAT, 04/27/2018. . FINDINGS: A single AP view of the chest demonstrates the lungs to be symmetrically aerated without evidence of mass, infiltrate or effusion. The cardiomediastinal contours are unremarkable. Osseous structures a re intact. CONCLUSION: The lungs are clear. Electronically signed by: Gurjit Maddox MD 05/13/2018 9:59 PM EDT
[2018-05-13 22:04] LABS: Alkaline Phosphatase 120 U/L (45-117); Total Protein 7.9 g/dL (6.4-8.2)
[2018-05-13 22:06] LABS: Creatine Kinase 47 U/L (26-192)
[2018-05-13] MEDS ORDERED: Morphine Inj 4 MG/ML Vial IV.PUSH ONE (22:06)
[2018-05-13] MEDS ORDERED: Sod Chloride 0.9% Inj 1,000 ML IV.SIG ONE (22:06)
--- NOTE | 2018-05-13 22:25 | ED ---
HPI General Chief complaint: Weakness Stated complaint: headache/chest pain Time Seen by Provider: 05/13/18 21:11 Source: patient Limitations: no limitations History of Present Illness HPI narrative: The patient is a 62 year old female who presents to the [facility] emergency department with a history of generalized weakness and fatigue with nausea vomiting that began on . She reports that it began on after her last radiation treatment. She reports that she completed her radiation course of [address] Cope related to a history of lymphoma. She reports that 2 months ago she completed a course of chemotherapy with Dr. Sainz, her oncologist. The patient reports that she had vomiting twice on and since then has had no appetite and has thus not been eating or drinking well. She reports that today she began to have a headache behind her eyes and over bilateral temples. She denies having any neck pain or stiffness. She reports that 2 days ago she had a subjective fever and over the last few days she has had a cough that has been dry in character. She reports that when she woke up from a nap this afternoon she began to have chest pressure. She reports that the chest pressure has been constant since onset. She also reports having dyspnea on exertion that is chronic. She denies having any prior history of lung disease. She denies having any prior history of cardiac disease. On review of systems otherwise, the patient denies having any abdominal pain, diarrhea, urinary symptoms, one-sided weakness, numbness or tingling to the extremities, facial droop, difficulty with word finding ability , vision changes, or vertigo. The patient reports that she has been suffering with constipation. The last bowel movement that she can recall was Monday 1 week ago. Related Data Home Medications Medication Instructions Recorded Confirmed multivitamin,tx-minerals 1 cap PO BID 05/13/18 05/13/18 [Multi-Vitamin HP/Minerals] Previous Rx's Medication Instructions Recorded ondansetron [Zofran ODT] 4 mg PO Q6H PRN #7 tab 05/14/18 polyethylene glycol 3350 [Miralax] 17 g PO DAILY PRN #10 each 05/14/18 Allergies Allergy/AdvReac Type Severity Reaction Status Date / Time aspirin Allergy Severe NAUSEA Verified 02/09/18 08:56 diclofenac Allergy Severe VOMITING Verified 02/09/18 08:56 penicillin G AdvReac Severe VOMITING Verified 02/09/18 08:56 Review of Systems ROS: all other systems reviewed are negative (Except for that which was mentioned in the HPI.) [facility] Family History Family History Other Diabetes mellitus Social History Social History Substance History: No History of Abuse Second Hand Smoke Exposure: No Smoking Status: Former smoker How Often Do You Have a Drink Containing Alcohol: Never Recent Travel in [facility] within the Last 8 Weeks: No Recent Out of Country Travel within the Last 8 Weeks: No Immunization History Tetanus Immunization: >5 Years Hx Influenza Vaccine This Season: Unable to Assess Exam Const General: cooperative, no acute distress and well developed Nutritional Appearance: well nourished Orientation: alert, awake and oriented x3 HENMT Head: normocephalic and atraumatic Nose: no nasal discharge and no epistaxis Mouth: other (Tacky mucous membranes.) Throat: posterior oropharynx normal and uvula midline Eyes Sclera: normal sclerae Pupils: PERRL Neck Neck: no meningeal signs, trachea midline and no JVD Resp Effort & Inspection: no use of accessory muscles Auscultation: clear to auscultation bilaterally Cardio Rate: tachycardic (Sinus tachycardia in the low 100s. No pulse deficits to the extremities on simultaneous auscultation and palpation of her radial artery) Rhythm: regular rhythm Heart Sounds: no gallops, no murmurs and no rubs GI Inspection: non-distended Palpation: soft, no hepatosplenomegaly and nontender Auscultation: normal bowel sounds Back/Spine/Pelvis Back: no CVA tenderness Skin General: dry skin (warm) Neuro General: alert, awake and oriented x3 Cranial Nerves: CN's II-XI intact bilaterally Speech: speech normal Motor: strength 5/5 throughout and no movement abnormalities noted Sensory Exam: no sensory deficits noted Extrem General: normal to inspection (No calf tenderness on palpation. 2+ pulses in all 4 extremities.), no clubbing, no cyanosis and no edema Psych Mood: congruent mood Affect: normal affect Judgment: judgment good Course Reevaluation(s) Reevaluation #1: On reexamination, the patient was reportedly feeling improved. The patient was able to ambulate to the bathroom without difficulty. Consultations Consultation #1: A call has been placed onto the patient's oncologist regarding the new leukopenia and thrombocytopenia. I spoke to Dr. Mojica regarding this patient's case at approximately 3 AM. She recommended observation with consultation with Dr. Sainz in the morning regarding this patient's new onset thrombocytopenia. Time: 02:00 Consultation #2: The patient's case including history, pertinent physical examination findings, and laboratory studies were discussed with Dr. Marlow. It was agreed that the patient would be admitted to the hospitalist service. Initial Documented Vital Signs Temperature 98.5 F 05/13/18 21:02 Pulse Rate 107 H 05/13/18 21:02 Respiratory Rate 18 05/13/18 21:02 Blood Pressure 123/73 05/13/18 21:02 Pulse Oximetry 96 05/13/18 21:02 Last Documented Vital Signs Temperature 98.3 F 05/15/18 15:40 Pulse Rate 70 05/15/18 16:03 Respiratory Rate 17 05/15/18 15:40 Blood Pressure 124/70 05/15/18 15:40 Pulse Oximetry 97 05/15/18 15:40 Medical Decision Making MDM Narrative Medical decision making narrative: During the course of the patient's emergency department visit, the patient's history, examination, and differential diagnosis were reviewed with the patient. The patient was placed on a lunchroom monitor with oximetry and frequent blood pressure monitoring. The patient had IV access obtained and blood work sent for analysis. A diagnostic evaluation was started regarding the patient's generalized weakness, nausea and vomiting. The Patient's diagnostic evaluation is remarkable for her having a white count of 3.1 which is decreased compared to her last white count is 6.6 on April 27, platelets are 44 which is decreased from 181 on April 27, monocytes are 11.3, hemoglobin is 14.4, PT 11.8, PTT 27.8, chemistry is remarkable for a troponin I of less than 0.02, CPK 47, sodium 133, glucose 112, lipase 56, AST is 42, alk phos 120. BNP is 3, a chest x-ray shows no acute abnormality. Given the patient's reported chest pressure, tachycardia on her vital signs, and shortness of breath, fatigue, the patient will have a CTA to rule out PE. CTA revealed no acute intrathoracic abnormality, no pulmonary emboli, 1 mm nonobstructive right renal stone. A call was placed out to the patient's oncologist regarding her new onset thrombocytopenia. I spoke to the covering oncologist who recommended admission for observation and repeat platelet count with consultation with the patient's oncologist in the morning. The patient's results were discussed with the patient, including the plan of care. I explained that further testing and/ or monitoring is indicated based on the patient's history, examination, and/ or laboratory findings. Therefore, I recommended admission for additional evaluation. The patient expressed understanding and was agreeable with this plan. The patient was admitted to the hospital in stable condition and sent to a bed under the care of [facility] service. Medical Screen Exam Complete: Yes Emergency Medical Condition: Yes Differential Diagnosis Differential Diagnosis: Viral syndrome, versus neutropenia, versus pneumonia, versus pulmonary embolism, versus urinary tract infection Medical Records Medical records reviewed: Yes I reviewed the patient's medical records. Lab Data Lab results reviewed: Yes I reviewed the patient's lab results. Result diagrams: 05/15/18 06:46 05/15/18 06:46 Lab Results 05/13/18 05/13/18 05/13/18 Range/Units 21:20 21:20 21:20 WBC 3.1 L (4.0-11.0) th/mm3 RBC 5.18 (4.00-5.30) mil/mm3 Hgb 14.4 (11.6-15.3) gm/dL Hct 43.8 (35.0-46.0) % MCV 84.5 (80.0-100.0) fL MCH 27.9 (27.0-34.0) pg MCHC 33.0 (32.0-36.0) % RDW 14.1 (11.6-17.2) % Plt Count 44 L D (150-450) th/mm3 MPV 9.3 (7.0-11.0) fL Prelim Diff (Auto) Slide review pending Neut % (Auto) 73.9 H (16.0-70.0) % Lymph % (Auto) 5.3 L (9.0-44.0) % [place] % (Auto) 11.3 H (0.0-8.0) % Eos % (Auto) 8.9 H (0.0-4.0) % Baso % (Auto) 0.6 (0.0-2.0) % Neut # (Auto) 2.3 (1.8-7.7) th/mm3 Lymph # (Auto) 0.2 L (1.0-4.8) th/mm3 [place] # (Auto) 0.3 (0.0-0.9) th/mm3 Eos # (Auto) 0.3 (0.0-0.4) th/mm3 Baso # (Auto) 0.0 (0.0-0.2) th/mm3 WBC Differential . Diff Scan Auto diff confirmed Differential Comment . Platelet Estimate (Normal) Platelet Morphology (Normal) Smear Path Review Haptoglobin (30-200) mg/dL PT 11.8 H (9.8-11.6) sec INR 1.2 Ratio APTT 27.8 (24.3-30.1) sec Fibrinogen (227-377) mg/dL Sodium 133 L (136-145) meq/L Potassium 4.2 (3.5-5.1) meq/L Chloride 98 (98-107) meq/L Carbon Dioxide 24.3 (21.0-32.0) meq/L Anion Gap 11 (5-15) meq/L BUN 7 (7-18) mg/dL Creatinine 0.73 (0.50-1.00) mg/dL Estimated GFR Greater than 89 (>89) mL/min Random Glucose 112 H (74-106) mg/dL Calcium 9.3 (8.5-10.1) mg/dL Magnesium 1.8 (1.5-2.5) mg/dL Total Bilirubin 0.6 (0.2-1.0) mg/dL AST 42 H (15-37) U/L ALT 42 (10-53) U/L Alkaline Phosphatase 120 H (45-117) U/L Total Creatine Kinase 47 (26-192) U/L Troponin I Less than 0.02 L (0.02-0.05) ng/mL B-Natriuretic Peptide (0-100) pg/mL Total Protein 7.9 (6.4-8.2) g/dL Albumin 3.5 (3.4-5.0) g/dL Lipase 56 L (73-393) U/L Urine Color (Yellw/Straw) Urine Clarity (Clear) Urine pH (5.0-8.5) Ur Specific [place] (1.002-1.035) Urine Protein (Neg-Trace) mg/dL Urine Glucose (UA) (Negative) mg/dL Urine Ketones (Negative) mg/dL Urine Occult Blood (Negative) Urine Nitrate (Negative) Urine Bilirubin (Negative) Urine Urobilinogen (Less than 2) mg/dL Ur Leukocyte Esterase (Negative) Urine RBC (0-3) /hpf Urine WBC (0-5) /hpf Ur Squamous Epith Cells (0-5) /hpf Micro UA Comment Urine Culture Comments Hep Bs Antigen (Nonreactive) Hep B Core IgM Ab (Nonreactive) Hep C IgG Ab (Nonreactive) HIV 1&2 Ab/P24 Ag 4thGn (Nonreactive) 05/13/18 05/14/18 05/15/18 Range/Units 21:20 01:20 06:46 WBC 2.6 L (4.0-11.0) th/mm3 RBC 4.57 (4.00-5.30) mil/mm3 Hgb 12.8 (11.6-15.3) gm/dL Hct 39.1 (35.0-46.0) % MCV 85.6 (80.0-100.0) fL MCH 28.0 (27.0-34.0) pg MCHC 32.8 (32.0-36.0) % RDW 14.3 (11.6-17.2) % Plt Count 32 L (150-450) th/mm3 MPV 9.6 (7.0-11.0) fL Prelim Diff (Auto) Slide review pending Neut % (Auto) 69.0 (16.0-70.0) % Lymph % (Auto) 7.2 L (9.0-44.0) % [place] % (Auto) 10.3 H (0.0-8.0) % Eos % (Auto) 12.9 H (0.0-4.0) % Baso % (Auto) 0.6 (0.0-2.0) % Neut # (Auto) 1.8 (1.8-7.7) th/mm3 Lymph # (Auto) 0.2 L (1.0-4.8) th/mm3 [place] # (Auto) 0.3 (0.0-0.9) th/mm3 Eos # (Auto) 0.3 (0.0-0.4) th/mm3 Baso # (Auto) 0.0 (0.0-0.2) th/mm3 WBC Differential . Diff Scan Auto diff confirmed Differential Comment . Platelet Estimate Low L (Normal) Platelet Morphology Normal (Normal) Smear Path Review Haptoglobin (30-200) mg/dL PT (9.8-11.6) sec INR Ratio APTT (24.3-30.1) sec Fibrinogen (227-377) mg/dL Sodium (136-145) meq/L Potassium (3.5-5.1) meq/L Chloride (98-107) meq/L Carbon Dioxide (21.0-32.0) meq/L Anion Gap (5-15) meq/L BUN (7-18) mg/dL Creatinine (0.50-1.00) mg/dL Estimated GFR (>89) mL/min Random Glucose (74-106) mg/dL Calcium (8.5-10.1) mg/dL Magnesium (1.5-2.5) mg/dL Total Bilirubin (0.2-1.0) mg/dL AST (15-37) U/L ALT (10-53) U/L Alkaline Phosphatase (45-117) U/L Total Creatine Kinase (26-192) U/L Troponin I (0.02-0.05) ng/mL B-Natriuretic Peptide 3 (0-100) pg/mL Total Protein (6.4-8.2) g/dL Albumin (3.4-5.0) g/dL Lipase (73-393) U/L Urine Color Yellow (Yellw/Straw) Urine Clarity Clear (Clear) Urine pH 5.0 (5.0-8.5) Ur Specific [place] Greater than 1.060 H (1.002-1.035) Urine Protein Negative (Neg-Trace) mg/dL Urine Glucose (UA) Negative (Negative) mg/dL Urine Ketones Negative (Negative) mg/dL Urine Occult Blood Negative (Negative) Urine Nitrate Negative (Negative) Urine Bilirubin Negative (Negative) Urine Urobilinogen 4 or greater (Less than 2) mg/dL Ur Leukocyte Esterase Trace H (Negative) Urine RBC 1 (0-3) /hpf Urine WBC 2 (0-5) /hpf Ur Squamous Epith Cells 7 (0-5) /hpf Micro UA Comment Culture not ind Urine Culture Comments Culture not ind Hep Bs Antigen (Nonreactive) Hep B Core IgM Ab (Nonreactive) Hep C IgG Ab (Nonreactive) HIV 1&2 Ab/P24 Ag 4thGn (Nonreactive) 05/15/18 05/15/18 05/15/18 Range/Units 06:46 06:46 06:46 WBC (4.0-11.0) th/mm3 RBC (4.00-5.30) mil/mm3 Hgb (11.6-15.3) gm/dL Hct (35.0-46.0) % MCV (80.0-100.0) fL MCH (27.0-34.0) pg MCHC (32.0-36.0) % RDW (11.6-17.2) % Plt Count (150-450) th/mm3 MPV (7.0-11.0) fL Prelim Diff (Auto) Neut % (Auto) (16.0-70.0) % Lymph % (Auto) (9.0-44.0) % [place] % (Auto) (0.0-8.0) % Eos % (Auto) (0.0-4.0) % Baso % (Auto) (0.0-2.0) % Neut # (Auto) (1.8-7.7) th/mm3 Lymph # (Auto) (1.0-4.8) th/mm3 [place] # (Auto) (0.0-0.9) th/mm3 Eos # (Auto) (0.0-0.4) th/mm3 Baso # (Auto) (0.0-0.2) th/mm3 WBC Differential Diff Scan Differential Comment Platelet Estimate (Normal) Platelet Morphology (Normal) Smear Path Review Haptoglobin (30-200) mg/dL PT (9.8-11.6) sec INR Ratio APTT (24.3-30.1) sec Fibrinogen (227-377) mg/dL Sodium 132 L (136-145) meq/L Potassium 4.5 (3.5-5.1) meq/L Chloride 100 (98-107) meq/L Carbon Dioxide 24.9 (21.0-32.0) meq/L Anion Gap 7 (5-15) meq/L BUN 5 L (7-18) mg/dL Creatinine 0.60 (0.50-1.00) mg/dL Estimated GFR Greater than 89 (>89) mL/min Random Glucose 91 (74-106) mg/dL Calcium 8.9 (8.5-10.1) mg/dL Magnesium (1.5-2.5) mg/dL Total Bilirubin (0.2-1.0) mg/dL AST (15-37) U/L ALT (10-53) U/L Alkaline Phosphatase (45-117) U/L Total Creatine Kinase (26-192) U/L Troponin I (0.02-0.05) ng/mL B-Natriuretic Peptide (0-100) pg/mL Total Protein (6.4-8.2) g/dL Albumin (3.4-5.0) g/dL Lipase (73-393) U/L Urine Color (Yellw/Straw) Urine Clarity (Clear) Urine pH (5.0-8.5) Ur Specific [place] (1.002-1.035) Urine Protein (Neg-Trace) mg/dL Urine Glucose (UA) (Negative) mg/dL Urine Ketones (Negative) mg/dL Urine Occult Blood (Negative) Urine Nitrate (Negative) Urine Bilirubin (Negative) Urine Urobilinogen (Less than 2) mg/dL Ur Leukocyte Esterase (Negative) Urine RBC (0-3) /hpf Urine WBC (0-5) /hpf Ur Squamous Epith Cells (0-5) /hpf Micro UA Comment Urine Culture Comments Hep Bs Antigen Nonreactive (Nonreactive) Hep B Core IgM Ab Nonreactive (Nonreactive) Hep C IgG Ab Nonreactive (Nonreactive) HIV 1&2 Ab/P24 Ag 4thGn Nonreactive (Nonreactive) 05/15/18 05/15/18 Range/Units 06:46 06:46 WBC (4.0-11.0) th/mm3 RBC (4.00-5.30) mil/mm3 Hgb (11.6-15.3) gm/dL Hct (35.0-46.0) % MCV (80.0-100.0) fL MCH (27.0-34.0) pg MCHC (32.0-36.0) % RDW (11.6-17.2) % Plt Count (150-450) th/mm3 MPV (7.0-11.0) fL Prelim Diff (Auto) Neut % (Auto) (16.0-70.0) % Lymph % (Auto) (9.0-44.0) % [place] % (Auto) (0.0-8.0) % Eos % (Auto) (0.0-4.0) % Baso % (Auto) (0.0-2.0) % Neut # (Auto) (1.8-7.7) th/mm3 Lymph # (Auto) (1.0-4.8) th/mm3 [place] # (Auto) (0.0-0.9) th/mm3 Eos # (Auto) (0.0-0.4) th/mm3 Baso # (Auto) (0.0-0.2) th/mm3 WBC Differential Diff Scan Differential Comment Platelet Estimate (Normal) Platelet Morphology (Normal) Smear Path Review Haptoglobin 119 (30-200) mg/dL PT (9.8-11.6) sec INR Ratio APTT (24.3-30.1) sec Fibrinogen 405 H (227-377) mg/dL Sodium (136-145) meq/L Potassium (3.5-5.1) meq/L Chloride (98-107) meq/L Carbon Dioxide (21.0-32.0) meq/L Anion Gap (5-15) meq/L BUN (7-18) mg/dL Creatinine (0.50-1.00) mg/dL Estimated GFR (>89) mL/min Random Glucose (74-106) mg/dL Calcium (8.5-10.1) mg/dL Magnesium (1.5-2.5) mg/dL Total Bilirubin (0.2-1.0) mg/dL AST (15-37) U/L ALT (10-53) U/L Alkaline Phosphatase (45-117) U/L Total Creatine Kinase (26-192) U/L Troponin I (0.02-0.05) ng/mL B-Natriuretic Peptide (0-100) pg/mL Total Protein (6.4-8.2) g/dL Albumin (3.4-5.0) g/dL Lipase (73-393) U/L Urine Color (Yellw/Straw) Urine Clarity (Clear) Urine pH (5.0-8.5) Ur Specific [place] (1.002-1.035) Urine Protein (Neg-Trace) mg/dL Urine Glucose (UA) (Negative) mg/dL Urine Ketones (Negative) mg/dL Urine Occult Blood (Negative) Urine Nitrate (Negative) Urine Bilirubin (Negative) Urine Urobilinogen (Less than 2) mg/dL Ur Leukocyte Esterase (Negative) Urine RBC (0-3) /hpf Urine WBC (0-5) /hpf Ur Squamous Epith Cells (0-5) /hpf Micro UA Comment Urine Culture Comments Hep Bs Antigen (Nonreactive) Hep B Core IgM Ab (Nonreactive) Hep C IgG Ab (Nonreactive) HIV 1&2 Ab/P24 Ag 4thGn (Nonreactive) Imaging Data Radiologist's impression: Chest X-Ray 05/13/18 21:15 CONCLUSION: The lungs are clear. Chest CTA 05/14/18 00:00 CONCLUSION: 1. No acute intrathoracic abnormality. In particular, no pulmonary emboli. 2. 1 mm nonobstructing right renal stone. Venous Doppler Study 05/15/18 00:00 CONCLUSION: No venous thrombosis is identified within either lower extremity. ECG Data Attestation: I personally reviewed and interpreted this ECG as follows: Interpretation: The patient had a EKG done on arrival. The patient's EKG reveals a sinus rhythm heart rate of 96, QRS duration is 94 ms, QTC 375 ms. Patient is noted to have an incomplete right bundle branch block, T waves are noted to be inverted in V4, V5, V6, lead I, aVL. No acute ST segment elevation. Discharge Plan Discharge Disposition Patient Disposition: 30 Still Patient Discharge Details Diagnosis: Thrombocytopenia Physicians Team ED Provider: Soumya Cherry Primary Care Provider: Primary Care Luann,Rosetta Attending Provider: Edgar Garcia Other Providers: Lakhwinder Gaston Status ED Status: Left Department Discharge Information Discharge Date/Time: 05/14/18 05:30
[2018-05-13] MEDS ORDERED: Sodium Chlor 0.9% Inj 500 ML IV.SIG ONE (23:54)
--- NOTE | 2018-05-14 01:11 | CT ---
EXAM DATE: 05/14/2018 12:59 AM EDT AGE/SEX: 62 years / Female INDICATIONS: Dizziness, weakness, and chest pressure; rule out pulmonary embolus. CLINICAL DATA: This is the patient's initial encounter. Patient reports that signs and symptoms have been present for 1 day and indicates a pain score of 0/10. MEDICAL/SURGICAL HISTORY: . Stomach cancer None. RADIATION DOSE: 10.75 CTDI (mGy) COMPARISON: No prior exams available for comparison. TECHNIQUE: Volumetric scanning was performed using a multi-row detector CT scanner during bolus infu jw of 50 ml Omnipaque 350 (iohexol) nonionic water-soluble contrast as a single exam dose. The carlie a was post processed with a variety of visualization algorithms including full volume maximum intensi ty projection and sliding thin slab reformation. Using automated exposure control and adjustment of t he mA and/or kV according to patient size, radiation dose was kept as low as reasonably achievable to obtain optimal diagnostic quality images. DICOM format image data is available electronically for r eview and comparison. FINDINGS: Pulmonary Arteries: No filling defects are seen in the pulmonary arteries out to the subsegmental ve ssels. The left and right pulmonary arteries are normal in diameter. Lung: Mild right linear basilar atelectasis. No acute infiltrates. No bronchiectasis. No mass.. Effusion: None. Mediastinum: No evidence of mediastinal or hilar adenopathy. Other: The axilla is unremarkable. A 1 mm nonobstructing right renal stone. CONCLUSION: 1. No acute intrathoracic abnormality. In particular, no pulmonary emboli. 2. 1 mm nonobstructing right renal stone. Electronically signed by: Gurjit Marcos MD 05/14/2018 1:10 AM EDT
[2018-05-14 01:51] LABS: Bilirubin,Urine Negative (Negative); Clarity,Urine Clear (Clear); Color,Urine Yellow (Yellw/Straw); Glucose,Urine (UA) Negative (Negative); Leukocyte Esterase,Urine Trace (Negative); Nitrite,Urine Negative (Negative); Squamous Epithelial Cell,Urine 7 /hpf (0-5); Urobilinogen,Urine 4 or Greater mg/dL (Less than 2)
--- NOTE | 2018-05-14 04:44 | P.HP ---
History of Present Illness Service: [facility] Primary Care Physician: No Primary Care Physician History of Present Illness: 62-year-old female with past medical history significant for lymphoma status post radiation treatment which completed last presents to the emergency department for the evaluation of generalized weakness and fatigue that began . She also reports associated nausea and vomiting. The patient completed chemotherapy [address] Gaston her oncologist. She reports that she is feeling better at this time than she did on her arrival to the emergency department. Routine workup showed thrombocytopenia with a platelet count of 44. The patient reports she had some hematuria approximately 1 month ago. She denies any current breathing. The patient endorses an associated headache. No chest pain or shortness of breath. No abdominal pain. No diarrhea. No fevers/chills. No lateralizing signs/symptoms. Review of Systems All other systems reviewed negative except as stated in HPI PMFSH - History History Provided By: Patient - Medical History Medical History: Medical History (Last Updated 05/14/18 @ 04:40 by Annemarie Marlow MD) Lymphoma Arthritis Stomach cancer - Surgical History Surgical History: Surgical History (Last Updated 05/13/18 @ 21:04 by Corazon Nettles) H/O removal of cyst Status post removal of thyroid nodule - Family History Family History: Family History (Last Updated 05/14/18 @ 04:40 by Annemarie Marlow MD) Other Diabetes mellitus - Tobacco History Tobacco Use In Past 30 Days: No Smoking Status: Former smoker - Alcohol History How Often Do You Have a Drink Containing Alcohol: Never - Substance Use History Substance History: No History of Abuse - Travel History Recent Travel in the [place] Within the Last 8 Weeks: No Recent Travel Out of the Country Within the Last 8 Weeks: No - Immunization History Tetanus Immunization: >5 Years Hx Influenza Vaccine This Season: Unable to Assess Medications and Allergies Active Medications: Active Medications Sodium Chloride (Ns Flush) 2 ml IV.FLUSH UNSCH PRN PRN Reason: FLUSH AFTER USING IV ACCESS Last Admin: 05/13/18 22:40 Dose: 2 ml Allergies Allergy/AdvReac Type Severity Reaction Status Date / Time aspirin Allergy Severe NAUSEA Verified 02/09/18 08:56 diclofenac Allergy Severe VOMITING Verified 02/09/18 08:56 penicillin G AdvReac Severe VOMITING Verified 02/09/18 08:56 Home Medications Medication Instructions Recorded Confirmed Type multivitamin,tx-minerals 1 cap PO BID 05/13/18 05/13/18 History [Multi-Vitamin HP/Minerals] Exam Vital signs: Vital Signs 05/13/18 21:02 05/13/18 22:03 05/14/18 02:00 Temperature 98.5 F Pulse Rate 107 H 81 Respiratory Rate 18 16 Blood Pressure 123/73 121/74 Pulse Oximetry 96 98 98 05/14/18 03:19 Temperature Pulse Rate Respiratory Rate 20 Blood Pressure Pulse Oximetry Intake & Output 05/13/18 05/13/18 05/14/18 06:59 18:59 06:59 Intake Total 1500 / 1500 Balance 1500 / 1500 Weight 65.771 kg Intake: IV 1500 / 1500 NS Inj 500 ML @ Wide Open IV. 500 / 500 SIG BOLUS ONE Rx#:[id number] Narrative: Gen.: No acute distress Head: Normocephalic. Atraumatic. EENT: Pupils equal round and reactive to light. Nose without drainage. Airway intact. Throat without injection. Cardiovascular: Regular rate and rhythm. No murmurs, rubs or gallops. Respiratory: Lungs clear to auscultation bilaterally. No wheezes or rhonchi. Abdomen: Soft, nontender, nondistended. No peritoneal signs. Musculoskeletal: No gross deformities. No edema. Skin: No obvious rashes or erythema. Neuro: Sensory and motor grossly intact. Cranial nerves II through XII grossly intact. Results - Labs CBC & Chem 7: 05/13/18 21:20 05/13/18 21:20 Labs: Laboratory Results - last 24 hr 05/13/18 05/13/18 05/13/18 21:20 21:20 21:20 WBC 3.1 L RBC 5.18 Hgb 14.4 Hct 43.8 MCV 84.5 MCH 27.9 MCHC 33.0 RDW 14.1 Plt Count 44 L D MPV 9.3 Prelim Diff (Auto) Slide review pending Neut % (Auto) 73.9 H Lymph % (Auto) 5.3 L [place] % (Auto) 11.3 H Eos % (Auto) 8.9 H Baso % (Auto) 0.6 Neut # (Auto) 2.3 Lymph # (Auto) 0.2 L [place] # (Auto) 0.3 Eos # (Auto) 0.3 Baso # (Auto) 0.0 WBC Differential . Diff Scan Auto diff confirmed Differential Comment . PT 11.8 H INR 1.2 APTT 27.8 Sodium 133 L Potassium 4.2 Chloride 98 Carbon Dioxide 24.3 Anion Gap 11 BUN 7 Creatinine 0.73 Estimated GFR Greater than 89 Random Glucose 112 H Calcium 9.3 Magnesium 1.8 Total Bilirubin 0.6 AST 42 H ALT 42 Alkaline Phosphatase 120 H Total Creatine Kinase 47 Troponin I Less than 0.02 L B-Natriuretic Peptide Total Protein 7.9 Albumin 3.5 Lipase 56 L Urine Color Urine Clarity Urine pH Ur Specific [place] Urine Protein Urine Glucose (UA) Urine Ketones Urine Occult Blood Urine Nitrate Urine Bilirubin Urine Urobilinogen Ur Leukocyte Esterase Urine RBC Urine WBC Ur Squamous Epith Cells Micro UA Comment Urine Culture Comments 05/13/18 05/14/18 21:20 01:20 WBC RBC Hgb Hct MCV MCH MCHC RDW Plt Count MPV Prelim Diff (Auto) Neut % (Auto) Lymph % (Auto) [place] % (Auto) Eos % (Auto) Baso % (Auto) Neut # (Auto) Lymph # (Auto) [place] # (Auto) Eos # (Auto) Baso # (Auto) WBC Differential Diff Scan Differential Comment PT INR APTT Sodium Potassium Chloride Carbon Dioxide Anion Gap BUN Creatinine Estimated GFR Random Glucose Calcium Magnesium Total Bilirubin AST ALT Alkaline Phosphatase Total Creatine Kinase Troponin I B-Natriuretic Peptide 3 Total Protein Albumin Lipase Urine Color Yellow Urine Clarity Clear Urine pH 5.0 Ur Specific [place] Greater than 1.060 H Urine Protein Negative Urine Glucose (UA) Negative Urine Ketones Negative Urine Occult Blood Negative Urine Nitrate Negative Urine Bilirubin Negative Urine Urobilinogen 4 or greater Ur Leukocyte Esterase Trace H Urine RBC 1 Urine WBC 2 Ur Squamous Epith Cells 7 Micro UA Comment Culture not ind Urine Culture Comments Culture not ind - Imaging Impressions Chest X-Ray 05/13/18 21:15 CONCLUSION: The lungs are clear. Chest CTA 05/14/18 00:00 CONCLUSION: 1. No acute intrathoracic abnormality. In particular, no pulmonary emboli. 2. 1 mm nonobstructing right renal stone. Caprini VTE Risk Assessment Caprini VTE Risk Assessment: Moderate/High Risk (score >= 2) Caprini Risk Assessment Model: Point Value = 1 Point Value = 2 Point Value = 3 Point Value = 5 Age 41-60 Minor surgery BMI > 25 kg/m2 Swollen legs Varicose veins or History of unexplained or recurrent spontaneous Oral contraceptives or hormone replacement Sepsis (< 1 month) Serious lung disease, including pneumonia (< 1 month) Abnormal pulmonary function Acute myocardial infarction Congestive heart failure (< 1 month) History of inflammatory bowel disease Medical patient at bed rest Age 61-74 Arthroscopic surgery Major open surgery (> 45 min) Laparoscopic surgery (> 45 min) Malignancy Confined to bed (> 72 hours) Immobilizing plaster cast Central venous access Age >= 75 History of VTE Family history of VTE Factor V Leiden Prothrombin [id number] Lupus anticoagulant Anticardiolipin antibodies Elevated serum homocysteine Heparin-induced thrombocytopenia Other congenital or acquired thrombophilia Stroke (< 1 month) Elective arthroplasty Hip, pelvis, or leg fracture Acute spinal cord injury (< 1 month) Prophylaxis Regimen: Total Risk Factor Score Risk Level Prophylaxis Regimen 0-1 Low Early ambulation 2 Moderate Order ONE of the following: *Sequential Compression Device (SCD) *Heparin 5000 units SQ BID 3-4 Higher Order ONE of the following medications: *Heparin 5000 units SQ TID *Enoxaparin/Lovenox 40 mg SQ daily (WT < 150 kg, CrCl > 30 mL/min) *Enoxaparin/Lovenox 30 mg SQ daily (WT < 150 kg, CrCl > 10-29 mL/min) *Enoxaparin/Lovenox 30 mg SQ BID (WT < 150 kg, CrCl > 30 mL/min) AND/OR *Sequential Compression Device (SCD) 5 or more Highest Order ONE of the following medications: *Heparin 5000 units SQ TID (Preferred with Epidurals) *Enoxaparin/Lovenox 40 mg SQ daily (WT < 150 kg, CrCl > 30 mL/min) *Enoxaparin/Lovenox 30 mg SQ daily (WT < 150 kg, CrCl > 10-29 mL/min) *Enoxaparin/Lovenox 30 mg SQ BID (WT < 150 kg, CrCl > 30 mL/min) AND *Sequential Compression Device (SCD) Assessment and Plan - Plan Assessment/plan: 1. Thrombocytopenia Patient's platelet count 44, over 400 2 months ago Heme/onc consulted, Dr. Gaston, appreciate recommendations No active signs of bleeding 2. History of lymphoma Status post chemotherapy completed 2 months ago Status post radiation therapy completed last Oncology consulted as above FEN Regular diet Electrolytes: Monitor and replete as needed Holding pharmacologic anticoagulation secondary to thrombocytopenia
--- NOTE | 2018-05-14 17:17 | ECG ---
Date Performed: 05/13/2018 Time Performed: 21:23:29 PTAGE: 62 years EKG: Sinus rhythm POSSIBLE LEFT ATRIAL ENLARGEMENT INCOMPLETE RIGHT BUNDLE BRANCH BLOCK MODERATE T-WAVE ABNORMALITY, C ONSIDER LATERAL ISCHEMIA ABNORMAL ECG PREVIOUS TRACING : 04/27/2018 15.26 Since the previous tracing, no significant change noted DOCTOR: Aric Rossi Interpretating Date/Time 05/14/2018 17:16:21
[2018-05-14] MEDS ORDERED: Acetaminophen 500 MG Tablet PO PRN (17:44)
[2018-05-15 07:58] LABS: Baso % (Auto) 0.6 % (0.0-2.0); Eos # (Auto) 0.3 th/mm3 (0.0-0.4); Eos % (Auto) 12.9 % (0.0-4.0); Hematocrit 39.1 % (35.0-46.0); Hemoglobin 12.8 gm/dL (11.6-15.3); Lymph # (Auto) 0.2 th/mm3 (1.0-4.8); Lymph % (Auto) 7.2 % (9.0-44.0); Mean Corpuscular HGB Conc 32.8 % (32.0-36.0); Mean Corpuscular Volume 85.6 fL (80.0-100.0); Mean Platelet Volume 9.6 fL (7.0-11.0); Mono # (Auto) 0.3 th/mm3 (0.0-0.9); Mono % (Auto) 10.3 % (0.0-8.0); Neut # (Auto) 1.8 th/mm3 (1.8-7.7); Platelet Count 32 th/mm3 (150-450); Red Blood Count 4.57 mil/mm3 (4.00-5.30); Red Cell Distribution Width 14.3 % (11.6-17.2); White Blood Count 2.6 th/mm3 (4.0-11.0)
[2018-05-15 08:22] LABS: Anion Gap 7 meq/L (5-15); Blood Urea Nitrogen 5 mg/dL (7-18); Calcium 8.9 mg/dL (8.5-10.1); Carbon Dioxide 24.9 meq/L (21.0-32.0); Chloride 100 meq/L (98-107); Glomerular Filtration Rate Greater Than 89 mL/min (>89); Glucose,Random 91 mg/dL (74-106); Potassium 4.5 meq/L (3.5-5.1); Sodium 132 meq/L (136-145)
--- NOTE | 2018-05-15 08:44 | P.PN ---
Subjective Interval history: Follow-up visit for weakness, thrombocytopenia s/p chemo and radiation for lymphoma. Patient seen and examined resting in bed comfortably, appears to be in no acute distress. She reports she is feeling a little better this morning. Denies any nausea, vomiting, fevers, chills, shortness of breath, cough, dysuria, or diarrhea. Patient reports constipation, positive flatus, denies any abdominal pain or discomfort. She reports that she is not eating much. Physical Exam Vital signs: Vital Signs 05/14/18 10:40 05/14/18 12:00 05/14/18 16:00 Temperature 98.0 F 99.6 F Pulse Rate 75 85 Respiratory Rate 16 16 Blood Pressure 126/65 134/56 L Pulse Oximetry 96 98 98 05/14/18 18:27 05/14/18 20:00 05/15/18 00:00 Temperature 98.8 F 98.1 F Pulse Rate 81 67 Respiratory Rate 18 16 17 Blood Pressure 110/56 L 109/56 L Pulse Oximetry 96 98 05/15/18 00:11 05/15/18 01:05 05/15/18 04:00 Temperature 99.0 F Pulse Rate 73 77 Respiratory Rate 18 18 Blood Pressure 132/71 Pulse Oximetry 98 05/15/18 04:19 05/15/18 05:12 05/15/18 07:48 Temperature 98.7 F Pulse Rate 86 83 Respiratory Rate 18 18 Blood Pressure 114/70 Pulse Oximetry 97 Intake & Output 05/14/18 05/15/18 05/15/18 18:59 06:59 18:59 Other: Date of Last Bowel Movement 05/05/18 05/12/18 Narrative: GENERAL: Well-developed well-nourished -[place] female resting in bed. SKIN: Warm and dry. HEAD: Atraumatic. Normocephalic. EYES: Pupils equal and round. No scleral icterus or drainage. ENT: No nasal bleeding or discharge. Mucous membranes pink and moist. NECK: Trachea midline. No JVD. CARDIOVASCULAR: Regular rate and rhythm. RESPIRATORY: No accessory muscle use. Clear to auscultation. Breath sounds equal bilaterally. GASTROINTESTINAL: Abdomen soft, non-tender, nondistended. + Bowel sounds. MUSCULOSKELETAL: Extremities without clubbing, cyanosis, or edema. No obvious deformities. NEUROLOGICAL: Awake and alert. No obvious cranial nerve deficits. Motor grossly within normal limits. Normal speech. PSYCHIATRIC: Appropriate mood and affect; insight and judgment normal. Results - Labs CBC & Chem 7: 05/15/18 06:46 05/15/18 06:46 Laboratory Results - last 24 hr 05/15/18 05/15/18 05/15/18 06:46 06:46 06:46 WBC 2.6 L RBC 4.57 Hgb 12.8 Hct 39.1 MCV 85.6 MCH 28.0 MCHC 32.8 RDW 14.3 Plt Count 32 L MPV 9.6 Prelim Diff (Auto) Slide review pending Neut % (Auto) 69.0 Lymph % (Auto) 7.2 L [place] % (Auto) 10.3 H Eos % (Auto) 12.9 H Baso % (Auto) 0.6 Neut # (Auto) 1.8 Lymph # (Auto) 0.2 L [place] # (Auto) 0.3 Eos # (Auto) 0.3 Baso # (Auto) 0.0 Differential Comment . Smear Path Review Haptoglobin Fibrinogen Sodium 132 L Potassium 4.5 Chloride 100 Carbon Dioxide 24.9 Anion Gap 7 BUN 5 L Creatinine 0.60 Estimated GFR Greater than 89 Random Glucose 91 Calcium 8.9 05/15/18 05/15/18 06:46 06:46 WBC RBC Hgb Hct MCV MCH MCHC RDW Plt Count MPV Prelim Diff (Auto) Neut % (Auto) Lymph % (Auto) [place] % (Auto) Eos % (Auto) Baso % (Auto) Neut # (Auto) Lymph # (Auto) [place] # (Auto) Eos # (Auto) Baso # (Auto) Differential Comment Smear Path Review Haptoglobin 119 Fibrinogen 405 H Sodium Potassium Chloride Carbon Dioxide Anion Gap BUN Creatinine Estimated GFR Random Glucose Calcium Assessment and Plan - Plan 62-year-old female with past medical history significant for lymphoma status post radiation who presented to the ER on 05/14 with complaints of generalized weakness. Thrombocytopenia, new onset Neutropenia -WBC count and platelet continue to drop, hematology/oncology consulted for further recommendations, appreciate recommendations -No active bleeding, but dynamically stable - Continue following CBC History of lymphoma -Status post chemo completed 2 months ago, status post radiation completed last -Hem/onc consulted DVT prophylaxis- SCD's Discussed Condition With: Patient and RN
[2018-05-15 09:00] LABS: Platelet Morphology Normal (Normal)
[2018-05-15 09:19] LABS: Hepatitits B Surface Antigen Nonreactive (Nonreactive)
[2018-05-15] MEDS: Polyethylene Glycol 3350 17 GM Packet PO SCH (12:35)
--- NOTE | 2018-05-15 13:34 | P.PNONC ---
Subjective Interval history: Patient ambulating in her room with a walker. She reports feeling weak. Intermittent lower abdominal and lower back pain. No bowel movement since Monday. Patient states that someone was going to give her laxatives this morning, however she has not received it as of yet. Denies any obvious bleeding. Had an episode of what she thought may have been blood in her urine approximately 1 week ago. She states this has not happened since. Objective Vital Signs/Intake & Output: Vital Signs 05/14/18 16:00 05/14/18 18:27 05/14/18 20:00 Temperature 99.6 F 98.8 F Pulse Rate 85 81 Respiratory Rate 16 18 16 Blood Pressure 134/56 L 110/56 L Pulse Oximetry 98 96 05/15/18 00:00 05/15/18 00:11 05/15/18 01:05 Temperature 98.1 F Pulse Rate 67 73 Respiratory Rate 17 18 Blood Pressure 109/56 L Pulse Oximetry 98 05/15/18 04:00 05/15/18 04:19 05/15/18 05:12 Temperature 99.0 F Pulse Rate 77 86 Respiratory Rate 18 18 Blood Pressure 132/71 Pulse Oximetry 98 05/15/18 07:48 05/15/18 09:00 05/15/18 11:55 Temperature 98.7 F 98.5 F Pulse Rate 83 84 78 Respiratory Rate 18 18 Blood Pressure 114/70 101/58 L Pulse Oximetry 97 99 Intake & Output 05/14/18 05/15/18 05/15/18 18:59 06:59 18:59 Other: Date of Last Bowel Movement 05/05/18 05/12/18 Result Diagrams: 05/15/18 06:46 05/15/18 06:46 Laboratory Results: Laboratory Results - last 24 hr 05/15/18 05/15/18 05/15/18 06:46 06:46 06:46 WBC 2.6 L RBC 4.57 Hgb 12.8 Hct 39.1 MCV 85.6 MCH 28.0 MCHC 32.8 RDW 14.3 Plt Count 32 L MPV 9.6 Prelim Diff (Auto) Slide review pending Neut % (Auto) 69.0 Lymph % (Auto) 7.2 L [place] % (Auto) 10.3 H Eos % (Auto) 12.9 H Baso % (Auto) 0.6 Neut # (Auto) 1.8 Lymph # (Auto) 0.2 L [place] # (Auto) 0.3 Eos # (Auto) 0.3 Baso # (Auto) 0.0 WBC Differential . Diff Scan Auto diff confirmed Differential Comment . Platelet Estimate Low L Platelet Morphology Normal Smear Path Review Haptoglobin Fibrinogen Sodium 132 L Potassium 4.5 Chloride 100 Carbon Dioxide 24.9 Anion Gap 7 BUN 5 L Creatinine 0.60 Estimated GFR Greater than 89 Random Glucose 91 Calcium 8.9 Hep Bs Antigen Nonreactive Hep B Core IgM Ab Nonreactive Hep C IgG Ab Nonreactive HIV 1&2 Ab/P24 Ag 4thGn Nonreactive 05/15/18 05/15/18 05/15/18 06:46 06:46 06:46 WBC RBC Hgb Hct MCV MCH MCHC RDW Plt Count MPV Prelim Diff (Auto) Neut % (Auto) Lymph % (Auto) [place] % (Auto) Eos % (Auto) Baso % (Auto) Neut # (Auto) Lymph # (Auto) [place] # (Auto) Eos # (Auto) Baso # (Auto) WBC Differential Diff Scan Differential Comment Platelet Estimate Platelet Morphology Smear Path Review Haptoglobin 119 Fibrinogen 405 H Sodium Potassium Chloride Carbon Dioxide Anion Gap BUN Creatinine Estimated GFR Random Glucose Calcium Hep Bs Antigen Hep B Core IgM Ab Hep C IgG Ab HIV 1&2 Ab/P24 Ag 4thGn Medications: Active Medications Generic Name Dose Route Start Last Admin Trade Name Freq PRN Reason Stop Dose Admin Acetaminophen 500 mg 05/14/18 17:44 05/14/18 17:57 Tylenol PO 500 mg Q6H PRN Administration headache, pain 4-10 Polyethylene Glycol 17 gm 05/15/18 09:30 05/15/18 12:35 Miralax PO 17 gm DAILY HOANG Administration Sodium Chloride 2 ml 05/13/18 21:15 05/13/18 22:40 Ns Flush IV.FLUSH 2 ml UNSCH PRN Administration FLUSH AFTER USING IV ACCESS Objective Remarks: GENERAL: Elderly female patient, ambulating with walker. SKIN: Warm and dry. HEAD: Normocephalic. EYES: No scleral icterus. No injection or drainage. NECK: Supple, trachea midline. CARDIOVASCULAR: Regular rate and rhythm without murmurs. RESPIRATORY: Breath sounds clear, equal bilaterally. No accessory muscle use. GASTROINTESTINAL: Abdomen soft, non-tender, nondistended. EXTREMITIES: No cyanosis, or edema. MUSCULOSKELETAL: Adequate muscle tone. NEUROLOGICAL: No obvious focal deficit. Awake, alert, and oriented x3. PSYCHIATRIC: Appropriate mood and affect; insight and judgment normal. 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 She is status post chemotherapy with weekly Rituxan x' s 4 weeks in October 2017 and radiation therapy with Dr Cope. She reportedly completed her radiation therapy last week. She reported to the hospital with complaints of generalized weakness. She was found to have a platelet count of 44,000. Plan: 1. Thrombocytopenia, platelets continue to trend down, count today is 32,000. Possibly secondary to radiation therapy, however will continue to monitor and rule out other causes. APTT 27.8, fibrinogen 405. CTA was negative for PE. HIV and Hep-B & C testing nonreactive. Peripheral blood smear is pending. I will order BLE ultrasound to exclude DVT. 2. Lymphoma, status post chemotherapy/radiation. Patient completed radiation last . 3. Constipation, likely causing the intermittent lower abdominal and lower back pain. Patient treated with lactulose today. 4. Continue supportive care.
--- NOTE | 2018-05-15 16:44 | US ---
EXAM DATE: 05/15/2018 4:13 PM EDT AGE/SEX: 62 years / Female INDICATIONS: Bilateral leg swelling. CLINICAL DATA: This is the patient's initial encounter. Patient reports that signs and symptoms have been present for 1 day and indicates a pain score of 0/10. MEDICAL/SURGICAL HISTORY: . Arthritis. Lymphoma. Stomach cancer. . Cyst removal. Thyroid nodul e removed. COMPARISON: No prior exams available for comparison. TECHNIQUE: Venous ultrasound of both lower extremities was performed from the inguinal ligament to t he proximal calf. Real-time, color Doppler and spectral tracing, compression and augmentation techni ques were used. FINDINGS: Right Leg: Normal compression of the deep venous system from the inguinal region to the proximal mamadou f. No echogenic clot is seen. Normal response of the venous system to augmentation and respiration. Left Leg: Normal compression of the deep venous system from the inguinal region to the proximal calf . No echogenic clot is seen. Normal response of the venous system to augmentation and respiration. Other: None. CONCLUSION: No venous thrombosis is identified within either lower extremity. Electronically signed by: Mandeep Joaquin MD 05/15/2018 4:43 PM EDT
--- NOTE | 2018-05-16 01:22 | MB ---
cc: Lakhwinder Gaston MD DATE: 05/15/2018 REASON FOR CONSULTATION: The patient with a history of MALT lymphoma, who presented to the emergency department with weakness, abdominal discomfort, and nausea. HISTORY OF PRESENT ILLNESS: This is a 62-year-old female who was diagnosed with MALT lymphoma with Helicobacter pylori infection. She was treated with extended antibiotics and PPI therapy. She had presented with symptoms of abdominal discomfort and reflux. CT of the abdomen and pelvis showed thickening of the gastroesophageal junction. She underwent EGD and was found to have duodenitis. There were multiple superficial ulcerations and severe gastritis in the antrum. Biopsy confirmed chronic gastritis with infection of Helicobacter pylori. There was atypical lymphoid proliferation suspicious for MALT lymphoma. The patient was treated with single-agent Rituxan x4 weeks. She subsequently had a PET scan. Based on the PET scan, there was no evidence of persistent disease. The patient was subsequently seen by Dr. Cruz and then referred to Dr. Cope. The patient has not followed up in the medical oncology clinic since January. She was subsequently recommended radiation treatments, a total of 30 Gy in 20 fractions. These were involved-field radiation treatments. According to the patient, she completed her treatments approximately 1 week ago. She has become progressively weak. She was feeling nauseous, was having abdominal discomfort, and states that she did not feel well. She was brought to the emergency room. On admission, she was found to be thrombocytopenic with a platelet count in the 40,000 range. She was admitted to the hospital. She has been getting supportive care. Hematology has been consulted to make further recommendations regarding her leukopenia and thrombocytopenia. The patient has not had any fevers or chills. No nosebleeds or gum bleeds. No petechia or bruising. REVIEW OF SYSTEMS: A comprehensive review of system was completed which is negative except as described in the HPI. PAST MEDICAL HISTORY: History of MALT lymphoma, osteoarthritis. PAST SURGICAL HISTORY: EGD with multiple biopsies. History of a cyst removal, history of thyroid nodule and resection. MEDICATIONS: Reviewed, and they are documented in the chart. FAMILY HISTORY: Significant for diabetes type 2. SOCIAL HISTORY: She quit smoking many years ago. She does not drink alcohol. No illicit drug use. PHYSICAL EXAMINATION: VITAL SIGNS: Blood pressure is 119/68, pulse in the 80s. Temperature is 98.4. GENERAL: Well-developed, well-nourished female in no apparent distress. HEENT: Pupils are equal, round, reactive to light. EOMI. No thrush. No lesions. NECK: Supple. No JVD. No bruits. No lymphadenopathy. CHEST: Clear to auscultation bilaterally. CARDIAC: S1, S2. Regular rate and rhythm. ABDOMEN: Soft, nontender, nondistended. Bowel sounds are present. EXTREMITIES: Without any edema, erythema, or cyanosis. SKIN: Without any petechiae, lesion, or bruises. NEUROLOGIC: No focal deficits. PSYCHIATRIC: Mood and affect are appropriate. LABORATORY DATA: WBC 2.6, hemoglobin 12.8, platelet count is 32. Haptoglobin is 119. Coags show INR of 1.2. Fibrinogen is 4.5. Hepatitis panel is negative. HIV panel is negative. CT of the chest was completed on admission. This did not show any pulmonary embolism. Doppler studies of lower extremity were also completed which do not show any DVT. ASSESSMENT AND PLAN: This is a 62-year-old female who has a history of MALT lymphoma of the stomach, who recently underwent radiation treatment. She completed her treatments approximately 1 week ago. She presents to the emergency department with increasing weakness, nausea, and abdominal discomfort. 1. Acute thrombocytopenia. This appears to be most likely secondary to radiation treatments. Her platelet count was normal. On 04/27/2018, it was 181,000. On 05/13/2018, it had dropped down to 44,000. There does not appear to be any underlying disseminated intravascular coagulation. Fibrinogen is preserved. She does not appear to have any infection. Her hepatitis and HIV panel was negative. Haptoglobin is not low. There is no evidence of microangiopathy. There is no indication for any platelet transfusion at this time. We will continue to monitor her platelet count. If the thrombocytopenia does not improve over time, then we could consider bone marrow biopsy. 2. Leukopenia with a WBC of 2.6, ANC is 1800. This is also due to recent radiation treatments. We will continue to monitor. Again, if this persists, then we will need to obtain a bone marrow biopsy. I reviewed the peripheral smear, and it does not appear to have any underlying dyserythropoiesis or myelodysplasia. Pathology will look at the slides as well. 2. Nausea, feeling unwell, and poor oral intake. Continue supportive care. Thank you for allowing me to participate in the care of this patient. We will continue to follow this patient along. MD SHEBA Pack/jeffy , 12:51 AM , 01:04 AM
[2018-05-16 06:26] LABS: Hematocrit 39.4 % (35.0-46.0); Hemoglobin 12.8 gm/dL (11.6-15.3); Mean Corpuscular HGB Conc 32.5 % (32.0-36.0); Mean Corpuscular Hemoglobin 27.9 pg (27.0-34.0); Mean Corpuscular Volume 85.7 fL (80.0-100.0); Mean Platelet Volume 9.1 fL (7.0-11.0); Platelet Count 42 th/mm3 (150-450); Red Blood Count 4.59 mil/mm3 (4.00-5.30); Red Cell Distribution Width 14.4 % (11.6-17.2)
[2018-05-16 06:50] LABS: Lactate Dehydrogenase 259 U/L (84-246)
[2018-05-16 08:18] LABS: Eosinophils 13 % (0-4); Lymphocytes 10 % (9-44); Monocytes 7 % (0-8); Platelet Morphology Normal (Normal)
[2018-05-16 08:19] LABS: RBC Morphology Normal (Normal)
[2018-05-16] MEDS: Polyethylene Glycol 3350 17 GM Packet PO SCH (09:08)
--- NOTE | 2018-05-16 12:24 | P.PN ---
Subjective Interval history: Follow-up visit for weakness, new onset of thrombocytopenia, status post chemo and radiation for lymphoma. Patient is seen and examined sitting up in chair at bedside, not very hungry, requesting something to stimulate her appetite. Patient denies any headache, dizziness, cough, shortness of breath, fevers, chills, nausea or vomiting. She also denies any bleeding or hematuria. Physical Exam Vital signs: Vital Signs 05/15/18 15:40 05/15/18 16:03 05/15/18 20:00 Temperature 98.3 F 98.4 F Pulse Rate 86 70 78 Respiratory Rate 17 17 Blood Pressure 124/70 119/68 Pulse Oximetry 97 97 05/15/18 23:48 05/16/18 00:00 05/16/18 01:28 Temperature 99.0 F Pulse Rate 78 82 Respiratory Rate 16 18 Blood Pressure 133/63 Pulse Oximetry 98 05/16/18 03:51 05/16/18 04:00 05/16/18 08:00 Temperature 98.3 F 97.8 F Pulse Rate 77 81 79 Respiratory Rate 18 24 Blood Pressure 110/65 115/65 Pulse Oximetry 98 97 Intake & Output 05/15/18 05/16/18 05/16/18 18:59 06:59 18:59 Intake Total 960 / 960 480 / 480 Balance 960 / 960 480 / 480 Intake: Oral 960 / 960 480 / 480 Other: # Voids 1 Date of Last Bowel Movement 05/12/18 Narrative: GENERAL: Well-developed well-nourished -[place] in no acute distress. SKIN: Warm and dry. HEAD: Atraumatic. Normocephalic. EYES: Pupils equal and round. No scleral icterus or drainage. ENT: No nasal bleeding or discharge. Mucous membranes pink and moist. NECK: Trachea midline. CARDIOVASCULAR: Regular rate and rhythm. RESPIRATORY: No accessory muscle use. Clear to auscultation. Breath sounds equal bilaterally. GASTROINTESTINAL: Abdomen soft, non-tender, nondistended. + Bowel sounds. MUSCULOSKELETAL: Extremities without clubbing, cyanosis, or edema. No obvious deformities. NEUROLOGICAL: Awake and alert. No obvious cranial nerve deficits. Motor grossly within normal limits. Normal speech. PSYCHIATRIC: Appropriate mood and affect; insight and judgment normal. Results - Labs CBC & Chem 7: 05/16/18 06:00 05/15/18 06:46 Laboratory Results - last 24 hr 05/16/18 05/16/18 06:00 06:00 WBC 3.0 L RBC 4.59 Hgb 12.8 Hct 39.4 MCV 85.7 MCH 27.9 MCHC 32.5 RDW 14.4 Plt Count 42 L D MPV 9.1 Prelim Diff (Auto) Manual diff required WBC Differential Manual diff final Seg Neuts % (Manual) 68 Band Neuts % (Manual) 1 Lymphocytes % (Manual) 10 Monocytes % (Manual) 7 Eosinophils % (Manual) 13 H Basophils % (Manual) 1 Abs Neuts (Manual) 2.1 Differential Comment . Platelet Estimate Low L Platelet Morphology Normal RBC Morphology Normal Haptoglobin 127 Lactate Dehydrogenase 259 H - Imaging Impressions Venous Doppler Study 05/15/18 00:00 CONCLUSION: No venous thrombosis is identified within either lower extremity. Assessment and Plan - Plan 62-year-old female with past medical history significant for lymphoma status post radiation who presented to the ER on 05/14 with complaints of generalized weakness. Thrombocytopenia, new onset Neutropenia -Today slight increase in WBCs as well as slight improvement in platelet count. -No active bleeding, hemodynamically stable. - Continue following CBC, hematology oncology following, appreciate assistance. They recommend supportive care. History of lymphoma -Status post chemo completed 2 months ago, status post radiation completed last -Hem/onc following Decreased appetite -Start Megace, monitor patient's food preferences. DVT prophylaxis- SCD's Discussed Condition With: Will need clearance from hematology oncology for discharge
--- NOTE | 2018-05-16 13:10 | P.PNONC ---
Subjective Interval history: Patient sitting up in chair, eating lunch. She reports she has a decreased appetite. She states she feels a little stronger than yesterday, however still has overall fatigue. Objective Vital Signs/Intake & Output: Vital Signs 05/15/18 15:40 05/15/18 16:03 05/15/18 20:00 Temperature 98.3 F 98.4 F Pulse Rate 86 70 78 Respiratory Rate 17 17 Blood Pressure 124/70 119/68 Pulse Oximetry 97 97 05/15/18 23:48 05/16/18 00:00 05/16/18 01:28 Temperature 99.0 F Pulse Rate 78 82 Respiratory Rate 16 18 Blood Pressure 133/63 Pulse Oximetry 98 05/16/18 03:51 05/16/18 04:00 05/16/18 08:00 Temperature 98.3 F 97.8 F Pulse Rate 77 81 79 Respiratory Rate 18 24 Blood Pressure 110/65 115/65 Pulse Oximetry 98 97 05/16/18 12:00 Temperature 97.9 F Pulse Rate 83 Respiratory Rate 23 Blood Pressure 128/69 Pulse Oximetry 98 Intake & Output 05/15/18 05/16/18 05/16/18 18:59 06:59 18:59 Intake Total 960 / 960 480 / 480 Balance 960 / 960 480 / 480 Intake: Oral 960 / 960 480 / 480 Other: # Voids 1 Date of Last Bowel Movement 05/12/18 Result Diagrams: 05/16/18 06:00 05/15/18 06:46 Laboratory Results: Laboratory Results - last 24 hr 05/16/18 05/16/18 06:00 06:00 WBC 3.0 L RBC 4.59 Hgb 12.8 Hct 39.4 MCV 85.7 MCH 27.9 MCHC 32.5 RDW 14.4 Plt Count 42 L D MPV 9.1 Prelim Diff (Auto) Manual diff required WBC Differential Manual diff final Seg Neuts % (Manual) 68 Band Neuts % (Manual) 1 Lymphocytes % (Manual) 10 Monocytes % (Manual) 7 Eosinophils % (Manual) 13 H Basophils % (Manual) 1 Abs Neuts (Manual) 2.1 Differential Comment . Platelet Estimate Low L Platelet Morphology Normal RBC Morphology Normal Haptoglobin 127 Lactate Dehydrogenase 259 H Imaging Studies: Impressions Venous Doppler Study 05/15/18 00:00 CONCLUSION: No venous thrombosis is identified within either lower extremity. Medications: Active Medications Generic Name Dose Route Start Last Admin Trade Name Francisq PRN Reason Stop Dose Admin Acetaminophen 500 mg 05/14/18 17:44 05/14/18 17:57 Tylenol PO 500 mg Q6H PRN Administration headache, pain 4-10 Polyethylene Glycol 17 gm 05/15/18 09:30 05/16/18 09:08 Miralax PO 17 gm DAILY HOANG Administration Sodium Chloride 2 ml 05/13/18 21:15 05/13/18 22:40 Ns Flush IV.FLUSH 2 ml UNSCH PRN Administration FLUSH AFTER USING IV ACCESS Objective Remarks: GENERAL: Elderly female patient, sitting up in chair, eating lunch. SKIN: Warm and dry. HEAD: Normocephalic. EYES: No scleral icterus. No injection or drainage. NECK: Supple, trachea midline. CARDIOVASCULAR: Regular rate and rhythm without murmurs. RESPIRATORY: Posterior breath sounds clear, equal bilaterally. No accessory muscle use. GASTROINTESTINAL: Abdomen soft, non-tender, nondistended. EXTREMITIES: No cyanosis, or edema. MUSCULOSKELETAL: Adequate muscle tone. NEUROLOGICAL: No obvious focal deficit. Awake, alert, and oriented x3. PSYCHIATRIC: Appropriate mood and affect; insight and judgment normal. 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 She is status post chemotherapy with weekly Rituxan x' s 4 weeks in October 2017 and radiation therapy with Dr Cope. She reportedly completed her radiation therapy last week. She reported to the hospital with complaints of generalized weakness. She was found to have a platelet count of 44,000. Plan: 1. Thrombocytopenia, platelets have increased, count today is 42,000. Possibly secondary to radiation therapy. BLE ultrasound was negative for DVT. 2. Lymphoma, status post chemotherapy/radiation. Patient completed radiation last . 3. Generalized fatigue, likely secondary to radiation therapy. 4. Continue supportive care.
[2018-05-17 06:20] LABS: Hematocrit 38.8 % (35.0-46.0); Hemoglobin 12.6 gm/dL (11.6-15.3); Mean Corpuscular HGB Conc 32.4 % (32.0-36.0); Mean Corpuscular Hemoglobin 27.7 pg (27.0-34.0); Mean Corpuscular Volume 85.4 fL (80.0-100.0); Mean Platelet Volume 10.3 fL (7.0-11.0); Platelet Count 34 th/mm3 (150-450); Red Blood Count 4.54 mil/mm3 (4.00-5.30); Red Cell Distribution Width 14.1 % (11.6-17.2); White Blood Count 2.8 th/mm3 (4.0-11.0)
[2018-05-17 08:31] LABS: Eosinophils 11 % (0-4); Lymphocytes 15 % (9-44); Monocytes 17 % (0-8)
[2018-05-17 08:32] LABS: Platelet Morphology Normal (Normal)
[2018-05-17] MEDS: Polyethylene Glycol 3350 17 GM Packet PO SCH (08:54)
[2018-05-17] MEDS: Megestrol Acetate Liq 400 MG/10 ML UDC PO SCH (08:54)
--- NOTE | 2018-05-17 09:33 | P.PNONC ---
Subjective Interval history: Afebrile, sitting up in chair. She reports increased fatigue, stating she felt a little better yesterday than she does today. We have discussed bone marrow biopsy, she is agreeable to this. Objective Vital Signs/Intake & Output: Vital Signs 05/16/18 10:40 05/16/18 12:00 05/16/18 16:00 Temperature 97.9 F 98.5 F Pulse Rate 83 80 Respiratory Rate 23 23 Blood Pressure 128/69 118/67 Pulse Oximetry 95 98 99 05/16/18 20:00 05/17/18 00:00 05/17/18 04:00 Temperature 97.2 F L 98.3 F 98.2 F Pulse Rate 81 78 84 Respiratory Rate 18 17 17 Blood Pressure 124/59 L 120/64 116/59 L Pulse Oximetry 98 98 95 05/17/18 08:00 Temperature 97.9 F Pulse Rate 86 Respiratory Rate 18 Blood Pressure 124/70 Pulse Oximetry 99 Intake & Output 05/16/18 05/17/18 05/17/18 18:59 06:59 18:59 Weight 65.7 kg Other: # Voids 4 Date of Last Bowel Movement 05/12/18 05/15/18 Result Diagrams: 05/17/18 04:50 05/15/18 06:46 Laboratory Results: Laboratory Results - last 24 hr 05/17/18 04:50 WBC 2.8 L RBC 4.54 Hgb 12.6 Hct 38.8 MCV 85.4 MCH 27.7 MCHC 32.4 RDW 14.1 Plt Count 34 L MPV 10.3 Prelim Diff (Auto) Manual diff required WBC Differential Manual diff final Seg Neuts % (Manual) 56 Lymphocytes % (Manual) 15 Monocytes % (Manual) 17 H Eosinophils % (Manual) 11 H Basophils % (Manual) 1 Abs Neuts (Manual) 1.6 L Differential Comment . Platelet Estimate Low L Platelet Morphology Normal Medications: Active Medications Generic Name Dose Route Start Last Admin Trade Name Freq PRN Reason Stop Dose Admin Acetaminophen 500 mg 05/14/18 17:44 05/14/18 17:57 Tylenol PO 500 mg Q6H PRN Administration headache, pain 4-10 Megestrol Acetate 400 mg 05/17/18 09:00 05/17/18 08:54 Megace Liq PO 400 mg DAILY HOANG Administration Mupirocin 1 applicatio 05/16/18 21:00 05/17/18 08:55 Bactroban 2% Oint TOPICAL 1 applicatio BID HOANG Administration Polyethylene Glycol 17 gm 05/15/18 09:30 05/17/18 08:54 Miralax PO 17 gm DAILY HOANG Administration Sodium Chloride 2 ml 05/13/18 21:15 05/13/18 22:40 Ns Flush IV.FLUSH 2 ml UNSCH PRN Administration FLUSH AFTER USING IV ACCESS Objective Remarks: GENERAL: Elderly female patient, sitting up in chair, in no acute distress. SKIN: Warm and dry. HEAD: Normocephalic. EYES: No scleral icterus. No injection or drainage. NECK: Supple, trachea midline. CARDIOVASCULAR: Regular rate and rhythm without murmurs. RESPIRATORY: Posterior breath sounds clear, equal bilaterally. Non-labored. GASTROINTESTINAL: Abdomen soft, non-tender, nondistended. EXTREMITIES: No cyanosis, or edema. MUSCULOSKELETAL: Adequate muscle tone. NEUROLOGICAL: No obvious focal deficit. Awake, alert, and oriented x3. PSYCHIATRIC: Appropriate mood and affect; insight and judgment normal. 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 She is status post chemotherapy with weekly Rituxan x' s 4 weeks in October 2017 and radiation therapy with Dr Cope. She reportedly completed her radiation therapy last week. She reported to the hospital with complaints of generalized weakness. She was found to have a platelet count of 44,000. Plan: 1. Thrombocytopenia, platelets have again declined, count today is 34,000. We will proceed with bone marrow biopsy to include cytogenetics, FISH and flow. 2. Lymphoma, status post chemotherapy/radiation. Patient completed radiation last . 3. Generalized fatigue, likely secondary to radiation therapy. 4. Continue supportive care. 5. Discussed with patient's RN.
[2018-05-17] MEDS ORDERED: fentaNYL Citrate Inj 100 MCG/2 ML Ampul ONE ×2 (14:17)
--- NOTE | 2018-05-17 15:54 | IR ---
EXAM DATE: 05/17/2018 3:22 PM EDT AGE/SEX: 62 years / Female INDICATIONS: Patient with history of lymphoma in need of bone marrow biopsy. CLINICAL DATA: This is the patient's initial encounter. Patient reports that signs and symptoms have been present for > 1 year and indicates a pain score of 0/10. MEDICAL/SURGICAL HISTORY: Stomach cancer, Arthritis, Lymphoma, Radiation and chemotherapy, Thrombocyt openia Cyst removal, Removal of thyroid nodule COMPARISON: No prior exams available for comparison. FLUORO TIME (min): 2.2 IMAGE SERIES: 2 SEDATION TIME (min): 15 MEDICATION(S): 2mg midazolam (Versed) IV 100mcg fentanyl (Sublimaze) IV DEVICE(s): 11 gauge bone biopsy needle SPECIMEN(S): Core specimen(s) obtained and submitted to laboratory for pathologic evaluation. . . PROCEDURE : 1. Fluoroscopically guided needle biopsy. 2. Conscious sedation with continuous EKG and Oximetry monitoring. The risks, benefits and alternatives to the procedure were explained and verbal and written consent w as obtained. The site was prepped in sterile fashion. Full sterile technique was used, including cap, mask, steri le gloves and gown and a large sterile sheet. Hand hygiene and 2% chlorhexidine and/or betadine/alco hol prep was utilized per protocol for cutaneous antisepsis. The skin and subcutaneous tissues were infiltrated with local anesthetic solution. With fluoroscopic guidance a bone biopsy needle was drilled into the dorsal aspect of the left iliac crest. A core sample of medullary bone was taken and submitted in formalin. The needle was then reint roduced and bone marrow aspirate was obtained slides were prepared with aspirated marrow fluid the dalia abarca tolerated the procedure well and was taken to recovery area in stable condition.. Conscious sedation was performed with the prescribed dosages and duration as above in the presence of an independent trained radiology nurse to assist in the monitoring of the patient. EKG and oximetry remained stable throughout the procedure. CONCLUSION: Uncomplicated needle biopsy of the left iliac crest bone and bone marrow sampling performed as above. Electronically signed by: Mandeep Puga MD 05/17/2018 3:53 PM EDT
[2018-05-17] MEDS ORDERED: Bisacodyl 10 MG Supp RECTAL PRN (17:48)
--- NOTE | 2018-05-17 17:52 | P.PN ---
Subjective Interval history: Follow-up visit for generalized weakness, new onset of thrombocytopenia following chemo and radiation. Patient is seen and examined in her room, ambulating without assistive devices and in no acute distress. She reports she had bone marrow biopsy early today and is currently not experiencing any pain or discomfort. She denies any fevers, chills, cough, shortness of breath or chest pain. Patient does endorse some constipation, denies any abdominal pain or discomfort. Patient also reports that she is "feeling a lot better than when I first came in". Physical Exam Vital signs: Vital Signs 05/16/18 20:00 05/17/18 00:00 05/17/18 04:00 Temperature 97.2 F L 98.3 F 98.2 F Pulse Rate 81 78 84 Respiratory Rate 18 17 17 Blood Pressure 124/59 L 120/64 116/59 L Pulse Oximetry 98 98 95 05/17/18 08:00 05/17/18 12:00 05/17/18 13:00 Temperature 97.9 F 98.1 F Pulse Rate 86 77 Respiratory Rate 18 18 16 Blood Pressure 124/70 112/58 L Pulse Oximetry 99 98 05/17/18 16:00 Temperature 98.3 F Pulse Rate 84 Respiratory Rate 18 Blood Pressure 126/61 Pulse Oximetry 98 Intake & Output 05/16/18 05/17/18 05/17/18 18:59 06:59 18:59 Intake Total 240 / 240 Balance 240 / 240 Weight 65.7 kg Intake: Oral 240 / 240 Other: # Voids 4 2 Date of Last Bowel Movement 05/12/18 05/15/18 Narrative: GENERAL: Well-developed well-nourished -[place] in no acute distress. SKIN: Warm and dry. HEAD: Atraumatic. Normocephalic. EYES: Pupils equal and round. No scleral icterus or drainage. ENT: No nasal bleeding or discharge. Mucous membranes pink and moist. NECK: Trachea midline. CARDIOVASCULAR: Regular rate and rhythm. RESPIRATORY: No accessory muscle use. Clear to auscultation. Breath sounds equal bilaterally. GASTROINTESTINAL: Abdomen soft, non-tender, nondistended. + Bowel sounds. MUSCULOSKELETAL: Extremities without clubbing, cyanosis, or edema. No obvious deformities. NEUROLOGICAL: Awake and alert. No obvious cranial nerve deficits. Motor grossly within normal limits. Normal speech. PSYCHIATRIC: Appropriate mood and affect; insight and judgment normal. Results - Labs CBC & Chem 7: 05/17/18 04:50 05/15/18 06:46 Laboratory Results - last 24 hr 05/17/18 04:50 WBC 2.8 L RBC 4.54 Hgb 12.6 Hct 38.8 MCV 85.4 MCH 27.7 MCHC 32.4 RDW 14.1 Plt Count 34 L MPV 10.3 Prelim Diff (Auto) Manual diff required WBC Differential Manual diff final Seg Neuts % (Manual) 56 Lymphocytes % (Manual) 15 Monocytes % (Manual) 17 H Eosinophils % (Manual) 11 H Basophils % (Manual) 1 Abs Neuts (Manual) 1.6 L Differential Comment . Platelet Estimate Low L Platelet Morphology Normal - Imaging Impressions Biopsy,Fluoroscopy Guided 05/17/18 00:00 CONCLUSION: Uncomplicated needle biopsy of the left iliac crest bone and bone marrow sampling performed as above. Assessment and Plan - Plan 62-year-old female with past medical history significant for lymphoma status post radiation who presented to the ER on 05/14 with complaints of generalized weakness. Thrombocytopenia, new onset Neutropenia Generalized weakness -WBCs 8.2, platelets 34 -No active bleeding, hemodynamically stable. - Continue following CBC, hematology oncology following, appreciate assistance. - s/p bone marrow biopsy 05/17 -Weakness likely secondary to chemo and radiation, improved per patient History of lymphoma -Status post chemo completed 2 months ago, status post radiation completed last -Hem/onc following Decreased appetite -Continue Megace, monitor patient's food preferences. -Constipation, continue MiraLAX, bowel program in place. 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
[2018-05-18] MEDS: Polyethylene Glycol 3350 17 GM Packet PO SCH (10:20)
[2018-05-18] MEDS: Megestrol Acetate Liq 400 MG/10 ML UDC PO SCH (10:20)
--- NOTE | 2018-05-18 14:25 | P.PN ---
Subjective Interval history: Follow-up visit for weakness, new onset of thrombocytopenia, status post chemo and radiation for lymphoma. Patient is seen and examined resting in bed comfortably, appears to be in no acute distress. She denies any nausea, vomiting, diarrhea, cough, shortness of breath or chest pain. Reports that she did manage to move her bowels earlier today, denies any dysuria. Physical Exam Vital signs: Vital Signs 05/17/18 16:00 05/17/18 20:00 05/17/18 21:00 Temperature 98.3 F 98.1 F Pulse Rate 84 85 80 Respiratory Rate 18 18 Blood Pressure 126/61 124/64 Pulse Oximetry 98 98 05/17/18 23:57 05/18/18 00:00 05/18/18 02:44 Temperature 100.5 F H Pulse Rate 89 84 Respiratory Rate 18 15 Blood Pressure 120/66 Pulse Oximetry 98 05/18/18 04:00 05/18/18 07:40 05/18/18 07:45 Temperature 99.9 F H 98.5 F Pulse Rate 91 H 88 Respiratory Rate 18 18 18 Blood Pressure 117/61 121/69 Pulse Oximetry 96 96 05/18/18 09:00 Temperature Pulse Rate 88 Respiratory Rate Blood Pressure Pulse Oximetry Intake & Output 05/17/18 05/18/18 05/18/18 18:59 06:59 18:59 Intake Total 240 / 240 Balance 240 / 240 Weight 66 kg Intake: Oral 240 / 240 Other: # Voids 2 Date of Last Bowel Movement 05/15/18 05/15/18 05/15/18 Narrative: GENERAL: Well-developed well-nourished -[place] in no acute distress. SKIN: Warm and dry. HEAD: Atraumatic. Normocephalic. EYES: Pupils equal and round. No scleral icterus or drainage. ENT: No nasal bleeding or discharge. Mucous membranes pink and moist. NECK: Trachea midline. CARDIOVASCULAR: Regular rate and rhythm. RESPIRATORY: No accessory muscle use. Clear to auscultation. Breath sounds equal bilaterally. GASTROINTESTINAL: Abdomen soft, non-tender, nondistended. + Bowel sounds. MUSCULOSKELETAL: Extremities without clubbing, cyanosis, or edema. No obvious deformities. NEUROLOGICAL: Awake and alert. No obvious cranial nerve deficits. Motor grossly within normal limits. Normal speech. PSYCHIATRIC: Appropriate mood and affect; insight and judgment normal. Results - Labs CBC & Chem 7: 05/17/18 04:50 05/15/18 06:46 - Imaging Impressions Biopsy,Fluoroscopy Guided 05/17/18 00:00 CONCLUSION: Uncomplicated needle biopsy of the left iliac crest bone and bone marrow sampling performed as above. Assessment and Plan - Plan 62-year-old female with past medical history significant for lymphoma status post radiation who presented to the ER on 05/14 with complaints of generalized weakness. Thrombocytopenia, new onset Neutropenia Generalized weakness -WBCs 8.2, platelets 34, pending blood work today. -No active bleeding, hemodynamically stable. - Continue following CBC, hematology oncology following, appreciate assistance. - s/p bone marrow biopsy 05/17 -Weakness likely secondary to chemo and radiation, improved per patient History of lymphoma -Status post chemo completed 2 months ago, status post radiation completed last -Hem/onc following Decreased appetite -Continue Megace, monitor patient's food preferences. -Constipation, resolved, BM 05/18 DVT prophylaxis- SCD's Discussed Condition With: Patient and laboratory technician Planning: Clearance from oncology/hematology, plans to discharge home.
[2018-05-18 16:52] LABS: Hematocrit 37.8 % (35.0-46.0); Hemoglobin 12.6 gm/dL (11.6-15.3); Mean Corpuscular HGB Conc 33.3 % (32.0-36.0); Mean Corpuscular Hemoglobin 28.1 pg (27.0-34.0); Mean Corpuscular Volume 84.2 fL (80.0-100.0); Mean Platelet Volume 9.2 fL (7.0-11.0); Platelet Count 40 th/mm3 (150-450); Red Blood Count 4.49 mil/mm3 (4.00-5.30); Red Cell Distribution Width 14.3 % (11.6-17.2)
--- NOTE | 2018-05-18 23:47 | P.PN ---
Subjective Interval history: resting comfortably wants to go home no acute events overnight no bleeding eating and ambulated in the room Physical Exam Vital signs: Vital Signs 05/17/18 23:57 05/18/18 00:00 05/18/18 02:44 Temperature 100.5 F H Pulse Rate 89 84 Respiratory Rate 18 15 Blood Pressure 120/66 Pulse Oximetry 98 05/18/18 04:00 05/18/18 07:40 05/18/18 07:45 Temperature 99.9 F H 98.5 F Pulse Rate 91 H 88 Respiratory Rate 18 18 18 Blood Pressure 117/61 121/69 Pulse Oximetry 96 96 05/18/18 09:00 05/18/18 12:00 05/18/18 20:00 Temperature 99.1 F Pulse Rate 88 88 80 Respiratory Rate 18 Blood Pressure 119/71 Pulse Oximetry 96 Intake & Output 05/18/18 05/18/18 05/19/18 06:59 18:59 06:59 Intake Total 240 / 240 Balance 240 / 240 Weight 66 kg Intake: Oral 240 / 240 Other: # Voids 2 Date of Last Bowel Movement 05/15/18 05/15/18 - Constitutional no acute distress - Routine Neck Exam Present: supple - Routine Respiratory Exam Present: CTA bilaterally - Routine Cardiovascular Exam Present: RRR, S1, S2 - Routine Abdominal Exam Present: soft, normoactive bowel sounds - Routine Extremities Exam Present: pulses intact Comments: no e/e/c Results - Labs CBC & Chem 7: 05/18/18 16:30 05/15/18 06:46 Laboratory Results - last 24 hr 05/18/18 16:30 WBC 4.0 RBC 4.49 Hgb 12.6 Hct 37.8 MCV 84.2 MCH 28.1 MCHC 33.3 RDW 14.3 Plt Count 40 L MPV 9.2 Assessment and Plan - Assessment (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 Thrombocytopenia and anemia due to treatment effect//recent radiation treatments: - results of BM bx pending - PLT count stable and slightly up - leukopenia resolved OK to d/c home from oncology standpoint.
[2018-05-19 04:44] LABS: Hematocrit 37.8 % (35.0-46.0); Hemoglobin 12.5 gm/dL (11.6-15.3); Mean Corpuscular HGB Conc 33.1 % (32.0-36.0); Mean Corpuscular Hemoglobin 28.1 pg (27.0-34.0); Mean Corpuscular Volume 84.7 fL (80.0-100.0); Mean Platelet Volume 9.3 fL (7.0-11.0); Platelet Count 41 th/mm3 (150-450); Red Blood Count 4.47 mil/mm3 (4.00-5.30); Red Cell Distribution Width 14.4 % (11.6-17.2); White Blood Count 3.6 th/mm3 (4.0-11.0)
--- NOTE | 2018-05-19 07:48 | P.DS ---
Date of admission: 05/14/18 03:21 Primary care physician: No Primary Care Physician Attending physician on discharge: Edgar Garcia Anticipated date of discharge: 05/19/18 Brief History from admission: 62-year-old female with past medical history significant for lymphoma status post radiation treatment which completed last presents to the emergency department for the evaluation of generalized weakness and fatigue that began . She also reports associated nausea and vomiting. The patient completed chemotherapy [address] Gaston her oncologist. She reports that she is feeling better at this time than she did on her arrival to the emergency department. Routine workup showed thrombocytopenia with a platelet count of 44. The patient reports she had some hematuria approximately 1 month ago. She denies any current breathing. The patient endorses an associated headache. No chest pain or shortness of breath. No abdominal pain. No diarrhea. No fevers/chills. No lateralizing signs/symptoms. DS: Medications - Discharge Medications Prescriptions: megestrol 400 mg PO DAILY #100 ml ondansetron [Zofran ODT] 4 mg PO Q6H PRN #7 tab PRN Reason: nausea and vomiting polyethylene glycol 3350 [Miralax] 17 g PO DAILY PRN #10 each PRN Reason: constipation DS: Summary Hospital Course: 62-year-old female with past medical history significant for lymphoma status post recent completion of radiation therapy who presented to the emergency department on 05/13 with generalized weakness and new onset of thrombocytopenia. Patient was seen and evaluated during her hospitalization by hematology oncology, underwent bone marrow biopsy on 05/17. Platelets remained stable around 40-30,000 with no episodes of bleeding. Patient also began feeling better during her stay, cleared by hematology oncology for discharge and follow- up as outpatient. Patient is seen and examined this morning resting comfortably in chair, appears to be in no acute distress. She denies any fevers , chills, nausea, vomiting, diarrhea, cough, shortness of breath or chest pain. Patient also reports bowel movement, denies hematuria or dysuria. - Time Spent with Patient Total time spent providing and/or coordinating discharge services: Less than 30 minutes - Quality: VTE Deep Vein Thrombosis/Pulmonary Embolism Present on Admission: No Exam Vital signs: Vital Signs 05/18/18 09:00 05/18/18 12:00 05/18/18 20:00 Temperature 99.1 F 98.3 F Pulse Rate 88 88 80 Respiratory Rate 18 17 Blood Pressure 119/71 121/69 Pulse Oximetry 96 97 05/18/18 23:59 05/19/18 00:29 05/19/18 01:45 Temperature 98.3 F Pulse Rate 80 79 Respiratory Rate 17 16 Blood Pressure 123/67 Pulse Oximetry 97 05/19/18 04:00 05/19/18 05:00 Temperature 98.1 F Pulse Rate 79 75 Respiratory Rate 17 Blood Pressure 124/71 Pulse Oximetry 97 Intake & Output 05/18/18 05/19/18 05/19/18 18:59 06:59 18:59 Intake Total 240 / 240 Balance 240 / 240 Weight 66.1 kg Intake: Oral 240 / 240 Other: # Voids 2 Date of Last Bowel Movement 05/15/18 Narrative: GENERAL: Well-developed well-nourished -[place] in no acute distress. SKIN: Warm and dry. HEAD: Atraumatic. Normocephalic. EYES: Pupils equal and round. No scleral icterus or drainage. ENT: No nasal bleeding or discharge. Mucous membranes pink and moist. NECK: Trachea midline. CARDIOVASCULAR: Regular rate and rhythm. RESPIRATORY: No accessory muscle use. Clear to auscultation. Breath sounds equal bilaterally. GASTROINTESTINAL: Abdomen soft, non-tender, nondistended. + Bowel sounds. MUSCULOSKELETAL: Extremities without clubbing, cyanosis, or edema. No obvious deformities. NEUROLOGICAL: Awake and alert. No obvious cranial nerve deficits. Motor grossly within normal limits. Normal speech. PSYCHIATRIC: Appropriate mood and affect; insight and judgment normal. Results Procedures completed during hospitalization: Bone marrow biopsy 05/17 Labs on day of discharge: Labs from last 24 hours 05/19/18 05/18/18 04:23 16:30 WBC 3.6 L 4.0 RBC 4.47 4.49 Hgb 12.5 12.6 Hct 37.8 37.8 MCV 84.7 84.2 MCH 28.1 28.1 MCHC 33.1 33.3 RDW 14.4 14.3 Plt Count 41 L 40 L MPV 9.3 9.2 - Impressions ITS Impressions Chest X-Ray 05/13/18 21:15 CONCLUSION: The lungs are clear. Chest CTA 05/14/18 00:00 CONCLUSION: 1. No acute intrathoracic abnormality. In particular, no pulmonary emboli. 2. 1 mm nonobstructing right renal stone. Venous Doppler Study 05/15/18 00:00 CONCLUSION: No venous thrombosis is identified within either lower extremity. Biopsy,Fluoroscopy Guided 05/17/18 00:00 CONCLUSION: Uncomplicated needle biopsy of the left iliac crest bone and bone marrow sampling performed as above. Discharge Plan - Discharge Disposition Patient Disposition: Discharge Home - Discharge Condition Condition: Fair - Discharge Order Discharge Orders: Discharge Order (Routine); Ordered 05/19/18 Ordered By: Lee Crespo - Physicians Team Primary Care Provider: Primary Care Rosetta Kong Attending Provider: Edgar Garcia Other Providers: Lakhwinder Gaston MD
[2018-05-19] MEDS: Megestrol Acetate Liq 400 MG/10 ML UDC PO SCH (08:43)
[2018-05-19] MEDS: Polyethylene Glycol 3350 17 GM Packet PO SCH (08:43)
== END 2018-05-19 10:04 | disposition home or self-care (01) ==
LOC: NEPE 20:51 → NEDA 20:51 → N06 05-14 05:22
PROVIDERS: ADMIT Internal Medicine; ATTEND Internal Medicine
DX: R50.9 Fever, unspecified; Z92.3 Personal history of irradiation; Z92.21 Personal history of antineoplastic chemotherapy; Z83.3 Family history of diabetes mellitus; R06.02 Shortness of breath; Z88.6 Allergy status to analgesic agent; D70.9 Neutropenia, unspecified; R07.89 Other chest pain; R11.2 Nausea with vomiting, unspecified; R53.1 Weakness; K59.00 Constipation, unspecified; C85.10 Unspecified B-cell lymphoma, unspecified site; N20.0 Calculus of kidney; Z87.891 Personal history of nicotine dependence; Z85.028 Personal history of other malignant neoplasm of stomach; R06.09 Other forms of dyspnea; R05 Cough; R51 Headache; I45.10 Unspecified right bundle-branch block; B96.81 Helicobacter pylori [H. pylori] as the cause of diseases classified elsewhere; R53.83 Other fatigue; R00.0 Tachycardia, unspecified; K29.80 Duodenitis without bleeding; D69.6 Thrombocytopenia, unspecified; K29.50 Unspecified chronic gastritis without bleeding